=== PATIENT | female | born 1970 | race Caucasian/White ===

== ENCOUNTER 2020-09-07 10:33 | Outpatient (REF) | payer OTHER, SELFPAY | END 2020-09-07 10:34 | disposition home or self-care (01) | LOC: HO.WFDLDS 10:33 | PROVIDERS: Visit Provider Internal Medicine | DX: Z20.828 Contact with and (suspected) exposure to other viral communicable diseases (principal) | CPT/HCPCS: C9803; U0003 ==

== ENCOUNTER 2021-01-10 07:18 | Outpatient (REF) | payer OTHER, SELFPAY ==
--- NOTE | ~2021-01-10 | MM_ITS ---
EXAMINATION: MM SCREENING DIGITAL BREAST TOMOSYNTHESIS, BILATERAL CLINICAL INFORMATION: Screening. Asymptomatic. The lifetime risk of breast cancer based on the Tyrer-Cuzick Model is 7.2%. COMPARISON: Mammography: 01/05/2020 and studies dating back to 11/26/2012. TECHNIQUE: Digital breast tomosynthesis is performed in both the craniocaudal and mediolateral oblique views along with computer-aided detection (CAD). Synthesized 2D images are generated from the tomosynthesis. FINDINGS: There are scattered areas of fibroglandular density (ACR BI-RADS breast composition Category b). There is a stable parenchymal pattern of the left breast. No new abnormal dominant mass or suspicious grouping of microcalcifications identified. Within the central aspect of the right breast, there is a 9 x 7 mm circumscribed density, approximately 8 cm from the nipple, with the appearance of a possible skin lesion at either 12 o'clock or 6 o'clock in position; however, on mediolateral oblique study, I do not identify a skin lesion. This appears to have been present to some degree on the previous study. There are 2 densities about the superior aspect of the right breast, one approximately 6 cm from nipple and the other approximately 8 cm from the nipple for which spot compression views are recommended. MM/MM tomosynthesis screening BI IMPRESSION: Right breast densities for further evaluation with spot compression view. If lesions are persistent, then ultrasound would be warranted. ASSESSMENT: BI-RADS 0: Incomplete - Need Additional Imaging Evaluation RECOMMENDATION: 1. Additional views of the right breast. 2. Targeted ultrasound if warranted after review of the additional views. 3. Radiology department staff will contact the patient for additional imaging.
== END 2021-01-10 07:19 | disposition home or self-care (01) ==
LOC: HO.MAMMO 07:18
PROVIDERS: PCP Family Medicine; Visit Provider Family Medicine
DX: Z12.31 Encounter for screening mammogram for malignant neoplasm of breast (principal)
CPT/HCPCS: 77063; 77067

== ENCOUNTER 2021-01-19 10:38 | Outpatient (REF) | payer OTHER, SELFPAY ==
--- NOTE | ~2021-01-19 | MM_ITS ---
EXAMINATION: MM DIAGNOSTIC DIGITAL BREAST TOMOSYNTHESIS, RIGHT CLINICAL INFORMATION: Recall from screening for scattered asymmetric densities right breast central and outer aspect. TC score 7%. No known family history breast cancer. COMPARISON: Mammography: 01/10/2021, 01/05/2020, 12/31/2014, 11/26/2012 TECHNIQUE: Digital breast tomosynthesis is performed. 2D images are generated from the tomosynthesis. The following views are obtained: Spot MLO, standard ML, rolled CC x2. FINDINGS: There are scattered areas of fibroglandular density (ACR BI-RADS breast composition Category b). Additional views show no mass or developing density or architectural abnormality. Results are discussed with the patient at time of visit. MM/MM tomosynthesis added views R IMPRESSION: No significant changes from prior studies. ASSESSMENT: BI-RADS 1: Negative RECOMMENDATION: Routine annual mammography screening. This patient's information was entered into a reminder system with a target due date for their next mammogram.
== END 2021-01-19 10:39 | disposition home or self-care (01) ==
LOC: HO.MAMMO 10:38
PROVIDERS: Visit Provider Internal Medicine
DX: R92.2 Inconclusive mammogram (principal)
CPT/HCPCS: 77061; 77065

== ENCOUNTER → 2021-03-16 10:05 | Outpatient (BNVA) | payer OTHER, SELFPAY | PROVIDERS: Visit Provider Advanced Practice Midwife ==

== ENCOUNTER 2021-05-09 10:12 | Outpatient (REF) | payer OTHER, SELFPAY ==
[2021-05-09 13:23] LABS: MANUAL DIFF FLAG NO
[2021-05-09 13:28] LABS: Basophils Percent Auto 0.5 % (0-2); Eosinophils Absolute Auto 0.1 X10*3/uL (0.0-0.4); Eosinophils Percent Auto 1.1 % (0-4); Hematocrit 41.3 % (37-47); Hemoglobin 13.6 g/dl (12.0-16.0); Imm Gran Abs Auto 0.04 X10*3/uL (0.00-0.03); Imm Gran Pct Auto 0.5 % (0.0-0.4); Lymphocytes Absolute Auto 1.9 X10*3/uL (1.2-4.9); Lymphocytes Percent Auto 24.1 % (20-40); Mean Corpuscular HGB Conc 32.9 g/dl (31.0-35.0); Mean Corpuscular Hemoglobin 31.6 pg (27.0-33.0); Mean Corpuscular Volume 95.8 fL (80-98); Mean Platelet Volume 10.1 fL (9.4-12.3); Monocytes Absolute Auto 0.5 X10*3/uL (0.1-1.2); Monocytes Percent Auto 6.3 % (2-11); Neutrophils Absolute Auto 5.4 X10*3/uL (2.0-8.3); Neutrophils Percent Auto 67.5 % (45-73); Platelet Count 294 X10*3/uL (160-400); Red Blood Count 4.31 X10*6/uL (4.20-5.50); Red Cell Distribution Width 12.6 % (11.0-16.0)
[2021-05-09 13:57] LABS: Alanine Aminotransferase 13 U/L (0-31); Albumin Level 4.2 g/dL (3.5-5.0); Alkaline Phosphatase 97 U/L (39-117); Anion Gap 14 (12-20); Aspartate Amino Transferase 18 U/L (5-31); Bilirubin Total 0.7 mg/dL (0.0-1.0); Blood Urea Nitrogen 9 mg/dL (9-16); Calcium 9.1 mg/dL (8.4-10.2); Chloride 107 mmol/L (96-108); Cholesterol 166 mg/dL; Estimated Glomerular Filt Rate > 60; Glucose Fasting 142 mg/dL (60-99); HDL Cholesterol 45 mg/dL; LDL Cholesterol Calculated 96 mg/dl; Potassium 4.7 mmol/L (3.3-5.1); Sodium 140 mmol/L (135-145); Triglycerides 128 mg/dL
[2021-05-09 14:02] LABS: Carbon Dioxide 24 mmol/L (22-29)
[2021-05-09 14:18] LABS: TSH reflex Free T4 0.64 uIU/mL (0.32-4.0)
[2021-05-09 14:21] LABS: Creatinine Urine 175.99 mg/dL; Microalbum/Creatinine Ratio Ur 7.9 ug/mg cr
== END 2021-05-09 10:13 | disposition home or self-care (01) ==
LOC: HO.WFDLDS 10:12
PROVIDERS: Visit Provider Family Medicine
DX: Z00.00 Encounter for general adult medical examination without abnormal findings (principal); E11.9 Type 2 diabetes mellitus without complications; I10 Essential (primary) hypertension
CPT/HCPCS: 36415; 80053; 80061; 82043; 84443; 85025

== ENCOUNTER 2021-10-04 07:02 | Outpatient (REF) | payer OTHER, SELFPAY ==
[2021-10-04 11:08] LABS: MANUAL DIFF FLAG NO
[2021-10-04 11:26] LABS: Basophils Percent Auto 0.3 % (0-2); Eosinophils Absolute Auto 0.1 X10*3/uL (0.0-0.4); Hematocrit 38.5 % (37.0-47.0); Hemoglobin 12.6 g/dl (12.0-16.0); Imm Gran Abs Auto 0.02 X10*3/uL (0.00-0.03); Imm Gran Pct Auto 0.3 % (0.0-0.4); Lymphocytes Absolute Auto 1.7 X10*3/uL (1.2-4.9); Lymphocytes Percent Auto 25.3 % (20-40); Mean Corpuscular HGB Conc 32.7 g/dl (31.0-35.0); Mean Corpuscular Volume 94.6 fL (80.0-98.0); Mean Platelet Volume 10.7 fL (9.4-12.3); Monocytes Absolute Auto 0.5 X10*3/uL (0.1-1.2); Monocytes Percent Auto 6.9 % (2-11); Neutrophils Absolute Auto 4.5 x10*3/uL (2.0-8.3); Neutrophils Percent Auto 66.2 % (45-73); Platelet Count 301 X10*3/uL (160-400); Red Blood Count 4.07 X10*6/uL (4.20-5.50); White Blood Count 6.8 X10*3/uL (4.8-10.8)
[2021-10-04 11:47] LABS: Alanine Aminotransferase 21 U/L (0-31); Albumin Level 4.4 g/dL (3.5-5.0); Alkaline Phosphatase 72 U/L (39-117); Anion Gap 12 (12-20); Aspartate Amino Transferase 25 U/L (5-31); Bilirubin Total 0.3 mg/dL (0.0-1.0); Blood Urea Nitrogen 12 mg/dL (9-16); Calcium 9.3 mg/dL (8.4-10.2); Carbon Dioxide 24 mmol/L (22-29); Chloride 107 mmol/L (96-108); Estimated Glomerular Filt Rate > 60; Glucose Random 136 mg/dL (60-115); Potassium 4.8 mmol/L (3.3-5.1); Sodium 138 mmol/L (135-145); Total Protein 7.1 g/dL (6.5-8.0)
[2021-10-04 11:59] LABS: TSH reflex Free T4 0.59 uIU/mL (0.32-4.0)
== END 2021-10-04 07:03 | disposition home or self-care (01) ==
LOC: HO.WFDLDS 07:02
PROVIDERS: Visit Provider Family Medicine
DX: Z00.00 Encounter for general adult medical examination without abnormal findings (principal); R53.83 Other fatigue
CPT/HCPCS: 36415; 80053; 84443; 85025

== ENCOUNTER 2021-11-26 13:57 | Outpatient (REF) | payer OTHER, SELFPAY | END 2021-11-26 13:58 | disposition home or self-care (01) | LOC: HO.LNP 13:57 | PROVIDERS: Visit Provider Hospitalist | DX: Z20.822 Contact with and (suspected) exposure to COVID-19 (principal); R68.89 Other general symptoms and signs | CPT/HCPCS: U0003; U0005 ==

== ENCOUNTER 2022-01-14 07:24 | Outpatient (REF) | payer OTHER, SELFPAY ==
--- NOTE | ~2022-01-14 | MM_ITS ---
EXAMINATION: MM SCREENING DIGITAL BREAST TOMOSYNTHESIS, BILATERAL CLINICAL INFORMATION: Screening. Asymptomatic. The lifetime risk of breast cancer based on the Tyrer-Cuzick Model is 8%. COMPARISON: Mammography: 01/19/2021, 01/10/2021, 01/05/2020 TECHNIQUE: Digital breast tomosynthesis is performed in both the craniocaudal and mediolateral oblique views along with computer-aided detection (CAD). Synthesized 2D images are generated from the tomosynthesis. FINDINGS: There are scattered areas of fibroglandular density (ACR BI-RADS breast composition Category b). Parenchymal pattern is similar to prior studies. There is no developing density or architectural abnormality. There are no significant masses, abnormal calcifications, or other abnormalities. The axilla are unremarkable. MM/MM tomosynthesis screening BI IMPRESSION: No mammographic evidence of malignancy. ASSESSMENT: BI-RADS 1: Negative RECOMMENDATION: Routine annual mammography screening. This patient's information was entered into a reminder system with a target due date for their next mammogram.
== END 2022-01-14 07:25 | disposition home or self-care (01) ==
LOC: HO.MAMMO 07:24
PROVIDERS: PCP Family Medicine; Visit Provider Family Medicine
DX: Z12.31 Encounter for screening mammogram for malignant neoplasm of breast (principal)
CPT/HCPCS: 77063; 77067

== ENCOUNTER 2022-03-15 08:28 | Outpatient (REF) | payer OTHER, SELFPAY ==
[2022-03-16 09:46] LABS: BV Int Neg Control Negative (Negative); BV Int Pos Control Positive (Positive)
== END 2022-03-15 08:29 | disposition home or self-care (01) ==
LOC: HO.LAB 08:28
PROVIDERS: PCP Family Medicine; Visit Provider Advanced Practice Midwife
DX: Z01.411 Encounter for gynecological examination (general) (routine) with abnormal findings (principal); R10.2 Pelvic and perineal pain; R23.2 Flushing; N92.6 Irregular menstruation, unspecified
CPT/HCPCS: 87480; 87510; 87660

== ENCOUNTER 2022-10-23 11:19 | Outpatient (REF) | payer OTHER, SELFPAY ==
[2022-10-23 15:11] LABS: Glucose Fasting 59 mg/dL (60-99)
[2022-10-23 15:20] LABS: Alanine Aminotransferase 11 U/L (0-31); Albumin Level 4.3 g/dL (3.5-5.0); Alkaline Phosphatase 88 U/L (39-117); Anion Gap 10 (12-20); Aspartate Amino Transferase 18 U/L (5-31); Bilirubin Total 0.4 mg/dL (0.0-1.0); Blood Urea Nitrogen 10 mg/dL (9-16); Calcium 9.3 mg/dL (8.4-10.2); Carbon Dioxide 26 mmol/L (22-29); Chloride 108 mmol/L (96-108); Cholesterol 243 mg/dL; Estimated Glomerular Filt Rate > 60; HDL Cholesterol 52 mg/dL; LDL Cholesterol Calculated 170 mg/dl; Potassium 4.1 mmol/L (3.3-5.1); Sodium 140 mmol/L (135-145); TSH reflex Free T4 0.58 uIU/mL (0.32-4.0); Triglycerides 109 mg/dL
== END 2022-10-23 11:20 | disposition home or self-care (01) ==
LOC: HO.WFDLDS 11:19
PROVIDERS: Visit Provider Family Medicine
DX: Z00.00 Encounter for general adult medical examination without abnormal findings (principal)
CPT/HCPCS: 36415; 80053; 80061; 84443

== ENCOUNTER 2023-01-20 07:30 | Outpatient (REF) | payer OTHER, SELFPAY ==
--- NOTE | ~2023-01-20 | MM_ITS ---
EXAMINATION: MM SCREENING DIGITAL BREAST TOMOSYNTHESIS, BILATERAL CLINICAL INFORMATION: Screening. Asymptomatic. The lifetime risk of breast cancer based on the Tyrer-Cuzick Model is 7%. COMPARISON: Prior mammography exams, most recent 01/14/2022. TECHNIQUE: Digital breast tomosynthesis is performed in both the craniocaudal and mediolateral oblique views along with computer-aided detection (CAD). Synthesized 2D images are generated from the tomosynthesis. FINDINGS: There are scattered areas of fibroglandular density (ACR BI-RADS breast composition Category b). There are no significant masses, abnormal calcifications, or other abnormalities. Parenchymal pattern is similar to prior studies. There is no developing density or architectural abnormality. The axilla and skin contours are unremarkable. No significant changes. MM/MM tomosynthesis screening BI IMPRESSION: No mammographic evidence of malignancy. ASSESSMENT: BI-RADS 1: Negative RECOMMENDATION: Routine annual mammography screening. This patient's information was entered into a reminder system with a target due date for their next mammogram.
== END 2023-01-20 07:31 | disposition home or self-care (01) ==
LOC: HO.MAMMO 07:30
PROVIDERS: PCP Family Medicine; Visit Provider Family Medicine
DX: Z12.31 Encounter for screening mammogram for malignant neoplasm of breast (principal)
CPT/HCPCS: 77063; 77067

== ENCOUNTER → 2023-03-21 07:59 | Outpatient (BNVA) | payer OTHER, SELFPAY | PROVIDERS: PCP Family Medicine; Visit Provider Advanced Practice Midwife ==

== ENCOUNTER 2023-03-21 08:48 | Outpatient (REF) | payer OTHER, SELFPAY ==
[2023-03-21 10:56] LABS: Alanine Aminotransferase 13 U/L (0-31); Albumin Level 4.4 g/dL (3.5-5.0); Alkaline Phosphatase 90 U/L (39-117); Anion Gap 14 (12-20); Aspartate Amino Transferase 17 U/L (5-31); Bilirubin Total 0.6 mg/dL (0.0-1.0); Blood Urea Nitrogen 12 mg/dL (9-16); Calcium 9.5 mg/dL (8.4-10.2); Carbon Dioxide 25 mmol/L (22-29); Chloride 106 mmol/L (96-108); Cholesterol 192 mg/dL; Estimated Glomerular Filt Rate > 60; Glucose Fasting 142 mg/dL (60-99); HDL Cholesterol 49 mg/dL; LDL Cholesterol Calculated 116 mg/dl; Potassium 4.8 mmol/L (3.3-5.1); Sodium 140 mmol/L (135-145); Total Protein 7.1 g/dL (6.5-8.0); Triglycerides 135 mg/dL
== END 2023-03-21 08:49 | disposition home or self-care (01) ==
LOC: HO.LAB 08:48
PROVIDERS: PCP Family Medicine; Visit Provider Family Medicine
DX: Z00.00 Encounter for general adult medical examination without abnormal findings (principal)
CPT/HCPCS: 36415; 80053; 80061

== ENCOUNTER 2023-07-24 06:35 | Outpatient (REF) | payer OTHER, SELFPAY ==
[2023-07-24 08:25] LABS: Alanine Aminotransferase 15 U/L (0-31); Albumin Level 4.5 g/dL (3.5-5.0); Alkaline Phosphatase 94 U/L (39-117); Anion Gap 12 (12-20); Aspartate Amino Transferase 23 U/L (5-31); Bilirubin Total 0.6 mg/dL (0.0-1.0); Blood Urea Nitrogen 12 mg/dL (9-16); Calcium 9.6 mg/dL (8.4-10.2); Carbon Dioxide 26 mmol/L (22-29); Chloride 105 mmol/L (96-108); Cholesterol 207 mg/dL (<200); Estimated Glomerular Filt Rate > 60; Glucose Fasting 208 mg/dL (60-99); HDL Cholesterol 50 mg/dL (>40); LDL Cholesterol Calculated 125 mg/dL (<100); Potassium 4.2 mmol/L (3.3-5.1); Sodium 139 mmol/L (135-145); Total Protein 7.7 g/dL (6.5-8.0); Triglycerides 164 mg/dL (<150)
[2023-07-24 08:29] LABS: TSH reflex Free T4 1.21 uIU/mL (0.32-4.0)
== END 2023-07-24 06:36 | disposition home or self-care (01) ==
LOC: HO.LAB 06:35
PROVIDERS: PCP Family Medicine; Visit Provider Family Medicine
DX: Z00.00 Encounter for general adult medical examination without abnormal findings (principal); I10 Essential (primary) hypertension
CPT/HCPCS: 36415; 80053; 80061; 84443

== ENCOUNTER 2023-07-25 15:54 | Outpatient (AMB) | payer OTHER, SELFPAY ==
--- NOTE | 2023-07-25 15:56 | A.OFFPC_ITS ---
Vital Signs 07/25/23 15:57 Height 5 ft 7 in Weight 196 lb BMI 30.7 BP 128/76 Blood Pressure Location Lt brachial Position Sitting Pulse 87 Pulse Source Pulse Oximeter Pulse Oximetry (%) 97 Oxygen Delivery Method Room Air Intake Visit Reasons: CPE with f/u labs and health maint. Intake Note: Patient is here for a physical today. She also needs A1C Allergies ampicillin [AMPICILLIN] Allergy (Severe, Verified 07/25/23 16:02) RASH Medication List - Last Reconciled 07/25/23 by Salvador Bowie MD atorvastatin 80 mg PO DAILY biotin 10,000 mcg PO DAILY blood-glucose meter (Blood Glucose Monitoring kit) check blood sugar daily and prn bupropion HCl 200 mg PO BID 90 days cetirizine (Allergy Relief (cetirizine)) 10 mg PO DAILY PRN cyclobenzaprine 10 mg PO TID PRN 30 days dulaglutide (Trulicity) 0.75 mg (0.5 mL) subcut QWEEK 28 days fluoxetine 40 mg PO DAILY lancets (FreeStyle Lancets) As directed metformin 500 mg PO DAILY 90 days multivitamin (Daily Multi-Vitamin tablet) 1 tab PO DAILY omeprazole 40 mg PO DAILY Tobacco use date assessed: 07/25/23 Dental Screening Dental Screen Date: 07/25/23 Did you have a dental visit in the last 12 months?: Yes Did you have a dental problem in the last 6 months where you did not have access to dental care?: No Was dental information given to patient?: Patient has dentist HPI CPE with f/u labs and health maint. HPI Details 53 y/o female presents for a CPE with f/ u labs and health maintenance. Labs were drawn 07/24/23. Reviewed labs with pt. Triglycerides 164. TC 207. LDL 125. HDL 50. She is on artovastatin 80mg daily. Last A1c 03/24/23 6.6%. [facility] Medical History Irregular menses Hot flashes Anxiety Diabetes Depression Surgical History History of tubal ligation Family History Mother Coronary heart disease Father Coronary heart disease Diabetes History of heart attack Other Mental health disorder Social History Housing: House Alcohol intake: current Alcohol intake frequency: a few times a month Alcohol type: hard liquor Patient Tobacco Use Status: Never used Tobacco Cigarettes Per Day: 2 e-Cigarette/Vaping Use: Never Used Second Hand Smoke Exposure: No service: No Current occupational status: employed Current occupation: [employer] Current occupational exposures/hazards: No Gender identity: Female Cognitive needs: No Hearing needs: No Vision needs: Yes (glasses) Female Reproductive History Menstrual Age of Menarche: 13 Questionnaire Thrive Questionnaire Date Thrive assessed: 03/29/22 LETI-7 AMB Questionnaire LETI-7 Date LETI - 7 assessed: 10/23/22 Source: Developed by Drs. Jeff Goncalves, Anu Landin, Nathan Tejeda and colleagues, with an educational nguyen from [employer]. Review of Systems Const Denies chills, Denies fatigue, Denies fever(s), Denies headache(s) and Denies weakness Eyes Denies change in vision ENT Denies dizziness, Denies headache(s), Denies hearing loss, Denies nasal congestion, Denies sinus pain, Denies sinus pressure and Denies sore throat Card Denies chest pain, Denies lightheadedness, Denies dyspnea and Denies other (palpitations) Resp Denies cough, Denies dyspnea and Denies wheezing GI Denies abdominal pain, Denies melena, Denies hematochezia, Denies change in bowel habits, Denies dyspepsia and Denies nausea Denies hematuria and Denies dysuria Musc Denies abnormal gait, Denies myalgias, Denies arthralgias, Denies numbness and Denies tingling Skin/Breast Denies rash, Denies unusual bruising and Denies wounds Neuro Denies abnormal gait, Denies dizziness, Denies headache(s), Denies memory loss, Denies numbness, Denies Sensory deficit (Neuro), Denies tingling and Denies weakness Psych Denies anxiety, Denies depression and Denies memory loss Endo Denies cold intolerance, Denies fatigue, Denies heat intolerance, Denies polydipsia and Denies polyuria Te/Lymph Denies easy bleeding and Denies easy bruising Aller/Immun Denies wheezing Physical exam (Primary Care) BMI result Body Mass Index 30.7 Tobacco/Smoking Status: Tobacco use Status Tobacco use date assessed 07/25/23 07/25/23 16:03 Patient Tobacco Use Status Never used Tobacco 07/25/23 16:00 e-Cigarette/Vaping Use Never Used 07/25/23 16:00 Thrive Assessment: Date of Thrive Assessment Date Thrive assessed 03/29/22 07/25/23 16:00 Const General: no acute distress, well developed, alert and awake Nutritional Appearance: well nourished Orientation/consciousness: patient oriented x3 HENMT Head: Yes normocephalic and Yes atraumatic Ears: hearing grossly normal bilaterally and TM's normal bilaterally General nose exam: Normal external nose present and Normal nares present Mouth: Normal oral and palatal mucosa present and moist mucous membranes Teeth and gingiva: dentition normal Throat: Yes posterior oropharynx normal Eyes General: appearance normal, both eyes and all related structures Pupils: Equal, round and reactive pupils present and Pupil accommodation reflex normal EOM: EOMs intact bilaterally Neck Neck: Yes normal visual inspection, Yes no lymphadenopathy and Yes trachea midline Thyroid: Thyroid normal Carotids: no bruits Lymphatic: no lymphadenopathy noted Chest Chest palpation & inspection: normal inspection of the chest Resp Effort & Inspection: normal respiratory effort Auscultation: clear to auscultation bilaterally Cardio Rate: regular rate Rhythm: regular rhythm Heart sounds: S1 normal heart sound present, S2 normal heart sound present, no gallops, no murmurs and no rubs Bruits: no abdominal aortic bruits and no carotid bruits GI Palpation (GI): No Abdominal aortic bruit present, Soft to palpation, nontender, No hepatosplenomegaly present and No Rebound tenderness present Auscultation: normal bowel sounds General: Yes no CVA tenderness Back/Spine/Pelvis Back: no CVA tenderness Cervical Spine: cervical ROM normal and No Cervical spine tenderness Thoracic/Lumbar Spine: thoraco-lumbar ROM normal, No pain with thoraco-lumbar ROM, No thoracic spinal tenderness and No lumbar spinal tenderness Skin Lesions: no lesions Rashes: no rashes Trauma: no lacerations or abrasions Wounds: no wounds Nails: normal Neuro General: patient oriented x3 Cranial nerves: Yes Equal, round and reactive pupils present Cognition (Neuro): normal cognition Gait exam (Neuro): Normal gait present Motor exam (neuro): 5/5 motor strength present throughout Sensory Exam: No Sensory deficit (Neuro) Deep tendon reflexes (DTR's): Right patellar reflex intensity grade: 2+ and Left patellar reflex intensity grade: 2+ Extrem General: Yes normal to inspection and No edema Psych Appearance: grossly normal Affect: normal affect Attitude: cooperative Thought process: Normal thought process present Results AMB Hemoglobin A1c AMB Hemoglobin A1c 7.4 % Last Edit by Lorin Bearden CMA on 07/25/23 16:26 Assessment and Plan Assessment & Plan (1) Annual visit for general adult medical examination without abnormal findings: Code(s): Z00.00 - Encounter for general adult medical examination without abnormal findings Plan: 53-year-old female presents for complete physical exam Encouraged healthy diet with active lifestyle and plenty of exercise (2) Hyperlipidemia: Code(s): E78.5 - Hyperlipidemia, unspecified Plan: LDL cholesterol still above goal and in fact increased. Goal is less than 100 for patient with diabetes Switching atorvastatin 80 mg to Crestor 40 mg daily Encouraged exercise (3) Diabetes: Code(s): E11.9 - Type 2 diabetes mellitus without complications Plan: A1c had been 6.6%; at goal but has risen to 7.4%. Goal is less than 7.0% Increasing Trulicity from 0.75 mg weekly to 1.5 mg weekly Encouraged exercise and diabetic diet (4) GERD (gastroesophageal reflux disease): Code(s): K21.9 - Gastro-esophageal reflux disease without esophagitis Plan: Continue taking omeprazole as prescribed Avoid eating too late or eating large meals. (5) Breast cancer screening by mammogram: Code(s): Z12.31 - Encounter for screening mammogram for malignant neoplasm of breast Plan: Most recent mammogram was negative for any malignancies. Recommended annual screening. She is up-to-date (6) Screening for cervical cancer: Code(s): Z12.4 - Encounter for screening for malignant neoplasm of cervix Plan: Has an upcoming appointment with her artist suspect at [facility] Follow-up with artist suspect (7) Screening for colon cancer: Code(s): Z12.11 - Encounter for screening for malignant neoplasm of colon Plan: Followed by Dr. Chavez. She says she had a colonoscopy 2 and half to 3 years ago I do not have access to that report today so I will request it. Orders: Orders AMB Hemoglobin A1c Today Z13.9 - Encounter for screening, unspecified Medications: New rosuvastatin 40 mg PO DAILY 90 tabs 2RF 90 days Changed From dulaglutide (Trulicity) 0.75 mg (0.5 mL) subcut QWEEK 28 days 2 mL 2RF To dulaglutide 1.5 mg (0.5 mL) subcut QWEEK 2 mL 2RF 28 days Discontinued atorvastatin Discontinued Reason: Doctor's Order 80 mg PO DAILY 90 tabs 1RF Coding Level of Care Code Est Pt Level 3 (54146) Est Pt Prev Care 40-64y(99077) Diagnoses Annual visit for general adult medical examination without abnormal findings Z00.00 Hyperlipidemia E78.5 Diabetes E11.9 GERD (gastroesophageal reflux disease) K21.9 Breast cancer screening by mammogram Z12.31 Screening for cervical cancer Z12.4 Screening for colon cancer Z12.11
[2023-07-25 15:57] VITALS: BP 128/76; PULSE 87; O2SAT 97; BMI 30.7
== END 2023-07-25 16:44 | disposition home or self-care (01) ==
PROVIDERS: PCP Family Medicine; Visit Provider Family Medicine
DX: Z00.00 Encounter for general adult medical examination without abnormal findings (principal); E11.9 Type 2 diabetes mellitus without complications; K21.9 Gastro-esophageal reflux disease without esophagitis; E78.5 Hyperlipidemia, unspecified
CPT/HCPCS: 83036; 99396

== ENCOUNTER 2023-10-24 07:20 | Outpatient (REF) | payer OTHER, SELFPAY ==
[2023-10-24 09:07] LABS: Appearance Urine Clear; Color Urine Yellow; Glucose Urine UA Negative (Negative); Leukocyte Esterase Urine Negative (Negative); Nitrite Urine Negative (Negative); PH 6.5 (5.0-9.0); Specific Gravity - Urine 1.025 (1.005-1.025); Urine Blood Negative (Negative); Urine Ketones Negative (Negative); Urine Protein Negative (Neg-Trace)
[2023-10-24 09:33] LABS: Alanine Aminotransferase 12 U/L (0-31); Albumin Level 4.3 g/dL (3.5-5.0); Alkaline Phosphatase 98 U/L (39-117); Anion Gap 13 (12-20); Aspartate Amino Transferase 19 U/L (5-31); Bilirubin Total 0.5 mg/dL (0.0-1.0); Blood Urea Nitrogen 10 mg/dL (9-16); Calcium 9.3 mg/dL (8.4-10.2); Carbon Dioxide 25 mmol/L (22-29); Chloride 107 mmol/L (96-108); Cholesterol 175 mg/dL (<200); Estimated Glomerular Filt Rate > 60; Glucose Fasting 144 mg/dL (60-99); HDL Cholesterol 54 mg/dL (>40); LDL Cholesterol Calculated 105 mg/dL (<100); Potassium 4.1 mmol/L (3.3-5.1); Sodium 141 mmol/L (135-145); Total Protein 7.4 g/dL (6.5-8.0); Triglycerides 84 mg/dL (<150)
[2023-10-24 09:34] LABS: Creatinine Urine 139.82 mg/dL; Microalbum/Creatinine Ratio Ur 8.5 ug/mg cr (<30)
== END 2023-10-24 07:21 | disposition home or self-care (01) ==
LOC: HO.LAB 07:20
PROVIDERS: PCP Family Medicine; Visit Provider Family Medicine
DX: Z00.00 Encounter for general adult medical examination without abnormal findings (principal); E11.9 Type 2 diabetes mellitus without complications; I10 Essential (primary) hypertension; E78.5 Hyperlipidemia, unspecified
CPT/HCPCS: 36415; 80053; 80061; 81003; 82043; 82570

== ENCOUNTER 2023-12-04 15:43 | Outpatient (AMB) | payer OTHER, SELFPAY ==
[2023-12-04 15:55] VITALS: BP 116/74; PULSE 96; O2SAT 98; BMI 29.4
--- NOTE | 2023-12-04 15:55 | MHC.PC.OV ---
Vital Signs 12/04/23 15:55 Height 5 ft 7 in Weight 188 lb BMI 29.4 BP 116/74 Blood Pressure Location Lt brachial Position Sitting Pulse 96 Pulse Source Pulse Oximeter Pulse Oximetry (%) 98 Oxygen Delivery Method Room Air Intake Visit Reasons: Follow-up diabetes and hyperlipidemia Intake Note: Patient is following up on diabetes and hyperlipidemia. Allergies ampicillin [AMPICILLIN] Allergy (Severe, Verified 12/04/23 15:56) RASH Tobacco use date assessed: 12/04/23 Dental Screening Dental Screen Date: 12/04/23 Did you have a dental visit in the last 12 months?: Yes Did you have a dental problem in the last 6 months where you did not have access to dental care?: No Was dental information given to patient?: Patient has dentist HPI Follow-up diabetes and hyperlipidemia HPI Details 53 y/o female presents to f/u diabetes and hyperlipidemia. Had increased Trulicity from 0.75 mg weekly to 1.5mg weekly and continued metformin as prescribed. Last A1c 07/25/23 7.4%. A1c today 12/04/23 is 6.5%. Had switched artovastatin 80mg to rosuvastatin 40mg daily. [facility] Medical History Irregular menses Hot flashes Anxiety Diabetes Depression Surgical History History of tubal ligation Family History Mother Coronary heart disease Father Coronary heart disease Diabetes History of heart attack Other Mental health disorder Social History Housing: House Alcohol intake: current Alcohol intake frequency: a few times a month Alcohol type: hard liquor Patient Tobacco Use Status: Never used Tobacco Cigarettes Per Day: 2 e-Cigarette/Vaping Use: Never Used Second Hand Smoke Exposure: No service: No Current occupational status: employed Current occupation: [employer] Current occupational exposures/hazards: No Gender identity: Female Cognitive needs: No Hearing needs: No Vision needs: Yes (glasses) Female Reproductive History Menstrual Age of Menarche: 13 Questionnaire PHQ-9 Over the last 2 weeks, how often have you been bothered by any of the following problems? 1. Little interest or pleasure in doing things: nearly every day 2. Feeling down, depressed, or hopeless: nearly every day 3. Trouble falling or staying asleep, or sleeping too much: nearly every day 4. Feeling tired or having little energy: nearly every day 5. Poor appetite or overeating: not at all 6. Feeling bad about yourself - or that you are a failure or have let yourself or your family down: not at all 7. Trouble concentrating on things, such as reading the newspaper or watching television: not at all 8. Moving or speaking so slowly that other people could have noticed. Or the opposite - being so fidgety or restless that you have been moving around a lot more than usual: not at all 9. Thoughts that you would be better off or of hurting yourself in some way: not at all Total score: 12 Depression Screening Interpretation: Positive Depression Screening Done: Yes Source: Developed by Drs. Jeff Goncalves, Anu Landin, Nathan Tejeda and colleagues, with an educational nguyen from [employer]. Thrive Questionnaire I am a: Patient AUDIT C Alcohol Use Questionnaire (AUDIT-C) 1. How often do you have a drink containing alcohol?: Monthly or less 2. How many drinks containing alcohol do you have on a typical day when you are drinking?: 1 or 2 3. How often do you have six or more drinks on one occasion?: Never Total Score: 1 LETI-7 AMB Questionnaire LETI-7 Date LETI - 7 assessed: 12/04/23 Feeling nervous, anxious, or on edge: 3 = Nearly every day Not being able to stop or control worryin = Nearly every day Worrying too much about different things: 3 = Nearly every day Trouble relaxin = Nearly every day Being so restless that it is hard to sit still: 0 = Not at all Becoming easily annoyed or irritable: 3 = Nearly every day Feeling afraid as if something awful might happen: 0 = Not at all Total LETI-7 score (0-4 normal; 5-9 mild; 10-14 moderate; 15-21 severe): 15 Source: Developed by Drs. Jeff Goncalves, Anu Landin, Nathan Tejeda and colleagues, with an educational nguyen from [employer]. Review of Systems Const Denies chills, Denies fatigue, Denies fever(s), Denies headache(s) and Denies weakness ENT Denies dizziness and Denies headache(s) Card Denies chest pain, Denies lightheadedness, Denies dyspnea and Denies other (Palpitations) Resp Denies cough, Denies dyspnea, Denies wheezing and Denies other ( shortness of breath) Musc Denies numbness and Denies tingling Neuro Denies dizziness, Denies headache(s), Denies numbness, Denies tingling, Denies paresthesias and Denies weakness Psych Denies anxiety and Denies depression Endo Denies fatigue Aller/Immun Denies wheezing Physical exam (Primary Care) Vital Signs: Last Vital Signs Pulse 96 12/04/23 15:55 BP 116/74 12/04/23 15:55 Pulse Ox 98 12/04/23 15:55 Oxygen Delivery Method Room Air 12/04/23 15:55 BMI result Body Mass Index 29.4 Tobacco/Smoking Status: Tobacco use Status Tobacco use date assessed 12/04/23 12/04/23 15:58 Patient Tobacco Use Status Never used Tobacco 12/04/23 15:56 e-Cigarette/Vaping Use Never Used 12/04/23 15:56 PHQ-9: PHQ-9 Score PHQ-9: Total score 12 12/04/23 16:08 Depression Screening Interpretation: Positive Thrive Assessment: Date of Thrive Assessment Date Thrive assessed 12/04/23 16:08 Const General: no acute distress and well developed Nutritional Appearance: well nourished Orientation/consciousness: patient oriented x3 [facility] Head: Yes normocephalic and Yes atraumatic Eyes General: appearance normal, both eyes and all related structures Pupils: Equal, round and reactive pupils present EOM: EOMs intact bilaterally Resp Effort & Inspection: normal respiratory effort Auscultation: clear to auscultation bilaterally Cardio Rate: regular rate Rhythm: regular rhythm Heart sounds: S1 normal heart sound present, S2 normal heart sound present, no gallops, no murmurs and no rubs Neuro General: patient oriented x3 and gait normal Cranial nerves: Yes Equal, round and reactive pupils present Psych Affect: normal affect Assessment and Plan Assessment & Plan (1) Diabetes: Code(s): E11.9 - Type 2 diabetes mellitus without complications Plan: A1c?now?6.5%.??Much?improved?and?at?goal?of?less?than?7.0% Continue?current?medication?regimen Continue?diabetic?diet?and?exercise.??Continue?weight?loss. Up-to-date?with?diabetic?eye?exam?from?July?2022 She?has?been?having?some?difficulty?getting?Trulicity.??Will?try?sending?as?3?month?supply (2) Hyperlipidemia: Code(s): E78.5 - Hyperlipidemia, unspecified Plan: LDL?cholesterol?nearly?at?goal?now?of?less?than?100 She?did?not?tolerate?rosuvastatin?and?went?back?to?atorvastatin?80?mg?daily?and?has?been?working?at?lifestyle?changes Continue?lifestyle?changes?and?atorvastatin?80?mg?daily (3) Motion sickness: Code(s): T75.3XXA - Motion sickness, initial encounter Plan: Patient?requests?scopolamine?patches.??Will?send?today. Medications: New scopolamine base 1 patch transdermal Q3D PRN 10 ea 0RF nausea and vomiting 30 days Changed From dulaglutide 1.5 mg (0.5 mL) subcut QWEEK 28 days 2 mL 2RF To dulaglutide 1.5 mg (0.5 mL) subcut QWEEK 84 days 6 mL 2RF Coding Level of Care Code Est Pt Level 4 (62345) Diagnoses Diabetes E11.9 Hyperlipidemia E78.5 Motion sickness T75.3XXA
== END 2023-12-04 16:23 | disposition home or self-care (01) ==
PROVIDERS: PCP Family Medicine; Visit Provider Family Medicine
DX: E11.69 Type 2 diabetes mellitus with other specified complication (principal); E78.5 Hyperlipidemia, unspecified; T75.3XXA Motion sickness, initial encounter
CPT/HCPCS: 83036; 99214

== ENCOUNTER 2024-01-26 07:29 | Outpatient (REF) | payer OTHER, SELFPAY ==
--- NOTE | ~2024-01-26 | MM_ITS ---
EXAMINATION: MM SCREENING DIGITAL BREAST TOMOSYNTHESIS, BILATERAL CLINICAL INFORMATION: Screening. Asymptomatic. COMPARISON: Mammography: 01/20/2023, 01/14/2022, 01/19/2021, 01/10/2021, 01/05/2020 TECHNIQUE: Digital breast tomosynthesis is performed in both the craniocaudal and mediolateral oblique views along with computer-aided detection (CAD). Synthesized 2D images are generated from the tomosynthesis. FINDINGS: There are scattered areas of fibroglandular density (ACR BI-RADS breast composition Category b). There are no suspicious masses, suspicious grouped calcifications, or areas of architectural distortion in either breast. The parenchymal pattern is stable from prior exams. There are no skin or axillary abnormalities. MM/MM tomosynthesis screening BI IMPRESSION: No mammographic evidence of malignancy. No significant changes. ASSESSMENT: BI-RADS BI-RADS 1 - Negative RECOMMENDATION: Routine annual mammography screening. 1 year F/U This examination should not preclude the clinical evaluation of a suspicious palpable abnormality. This patient's information was entered into a reminder system with a target due date for their next mammogram.
== END 2024-01-26 07:30 | disposition home or self-care (01) ==
LOC: HO.MAMMO 07:29
PROVIDERS: PCP Family Medicine; Visit Provider Family Medicine
DX: Z12.31 Encounter for screening mammogram for malignant neoplasm of breast (principal)
CPT/HCPCS: 77063; 77067

== ENCOUNTER → 2024-01-26 07:30 | Outpatient (BNV) | payer OTHER, SELFPAY | PROVIDERS: PCP Family Medicine; Visit Provider Radiology Diagnostic Radiology | DX: Z12.31 Encounter for screening mammogram for malignant neoplasm of breast (principal) | CPT/HCPCS: 77063; 77067 ==

== ENCOUNTER 2024-03-05 16:14 | Outpatient (AMB) | payer OTHER, SELFPAY ==
[2024-03-05 16:36] VITALS: BP 141/85; PULSE 81; O2SAT 98
--- NOTE | 2024-03-05 16:36 | A.OFFPC_ITS ---
Vital Signs 03/05/24 16:36 Height 5 ft 7 in BP 141/85 H Blood Pressure Location Lt brachial Position Sitting Pulse 81 Pulse Source Pulse Oximeter Pulse Oximetry (%) 98 Oxygen Delivery Method Room Air Intake Visit Reasons: Follow-up diabetes and hyperlipidemia Intake Note: Patient is here upset and did not medical device her diabetic meds for about 2-3 months now, her pharmacy had tried to ask for alternative meds, but no reply to the patient athat we received the request. Allergies ampicillin [AMPICILLIN] Allergy (Severe, Verified 03/05/24 16:41) RASH Tobacco use date assessed: 03/05/24 Dental Screening Dental Screen Date: 12/04/23 HPI Follow-up diabetes and hyperlipidemia HPI Details 54 y/o female presents to f/u diabetes, HLD. Last A1c 12/04/23 6.5%. She is on ozempic 1mg weekly and metformin as prescribed. Pt reports she has not received her diabetes meds for 2-3 months. A1c today 03/05/24 is 9.0%. Had switched artovastatin 80mg to rosuvastatin 40mg daily. No recent lipid panel to review. [facility] Medical History Irregular menses Hot flashes Anxiety Diabetes Depression Surgical History History of tubal ligation Family History Mother Coronary heart disease Father Coronary heart disease Diabetes History of heart attack Other Mental health disorder Social History Housing: House Alcohol intake: current Alcohol intake frequency: a few times a month Alcohol type: hard liquor Patient Tobacco Use Status: Never used Tobacco Cigarettes Per Day: 2 e-Cigarette/Vaping Use: Never Used Second Hand Smoke Exposure: No service: No Current occupational status: employed Current occupation: [employer] Current occupational exposures/hazards: No Gender identity: Female Cognitive needs: No Hearing needs: No Vision needs: Yes (glasses) Female Reproductive History Menstrual Age of Menarche: 13 Questionnaire LETI-7 AMB Questionnaire LETI-7 Date LETI - 7 assessed: 12/04/23 Source: Developed by Drs. Jeff Goncalves, Anu Landin, Nathan Tejeda and colleagues, with an educational nguyen from [employer]. Review of Systems Const Denies chills, Denies fatigue, Denies fever(s), Denies headache(s) and Denies weakness ENT Denies dizziness and Denies headache(s) Card Denies dyspnea Resp Denies cough, Denies dyspnea, Denies wheezing and Denies other (shortness of breath) Musc Denies numbness and Denies tingling Neuro Denies dizziness, Denies headache(s), Denies numbness, Denies tingling and Denies weakness Psych Denies anxiety and Denies depression Endo Denies fatigue Aller/Immun Denies wheezing Physical exam (Primary Care) Tobacco/Smoking Status: Tobacco use Status Tobacco use date assessed 12/04/23 03/05/24 16:37 Patient Tobacco Use Status Never used Tobacco 03/05/24 16:37 e-Cigarette/Vaping Use Never Used 03/05/24 16:37 Const General: well developed; No acute distress Nutritional Appearance: well nourished Orientation/consciousness: patient oriented x3 HENMT Head: Yes normocephalic and Yes atraumatic Eyes General: appearance normal, both eyes and all related structures Pupils: Equal, round and reactive pupils present EOM: EOMs intact bilaterally Resp Effort & Inspection: normal respiratory effort Auscultation: clear to auscultation bilaterally Cardio Rate: regular rate Rhythm: regular rhythm Heart sounds: S1 normal heart sound present, S2 normal heart sound present, no gallops, no murmurs and no rubs Neuro General: patient oriented x3 and gait normal Cranial nerves: Yes Equal, round and reactive pupils present Psych Affect: normal affect Results AMB Hemoglobin A1c AMB Hemoglobin A1c 9.0 % Last Edit by Lorin Bearden CMA on 03/05/24 17:00 Assessment and Plan Assessment & Plan (1) Diabetes: Code(s): E11.9 - Type 2 diabetes mellitus without complications Plan: A1c?9.0%. She?has?been?unable?to?get?Trulicity?or?Ozempic?due?ultimately?to?insurance?decl ining?these. She?will?continue?metformin She?will?start?Lantus?10?units?daily?and?check?her?blood?sugars. Will?follow-up?in?1?month Orders: Orders AMB Hemoglobin A1c Today Z13.9 - Encounter for screening, unspecified Medications: New insulin glargine (Lantus Solostar U-100 Insulin) 10 units (0.1 mL) subcut QPM 30 days 3 mL 3RF pen needle, diabetic (BD Ultra-Fine Micro Pen Needle) To treat blood sugar, daily as directed, 90 days 100 ea 3RF E11.9 - Type 2 diabetes mellitus without complications Discontinued semaglutide (Ozempic) Discontinued Reason: Doctor's Order 1 mg (0.75 mL) subcut QWEEK 28 days 3 mL 3RF Coding Level of Care Code Est Pt Level 3 (42541) Diagnoses Diabetes E11.9
== END 2024-03-05 17:14 | disposition home or self-care (01) ==
PROVIDERS: PCP Family Medicine; Visit Provider Family Medicine
DX: E11.9 Type 2 diabetes mellitus without complications (principal)
CPT/HCPCS: 83036; 99213

== ENCOUNTER 2024-04-02 10:21 | Outpatient (AMB) | payer OTHER, SELFPAY ==
--- NOTE | 2024-04-02 11:02 | A.OFFPC_ITS ---
Vital Signs 04/02/24 11:05 Height 5 ft 7 in Weight 192 lb BMI 30.1 BP 120/82 Blood Pressure Location Lt brachial Position Sitting Pulse 77 Pulse Source Pulse Oximeter Pulse Oximetry (%) 97 Oxygen Delivery Method Room Air Intake Visit Reasons: f/u diabetes Intake Note: Patient is here to follow up on her diabetes. Allergies ampicillin [AMPICILLIN] Allergy (Severe, Verified 04/02/24 11:08) RASH Tobacco use date assessed: 04/02/24 Dental Screening Dental Screen Date: 04/02/24 Did you have a dental visit in the last 12 months?: Yes Did you have a dental problem in the last 6 months where you did not have access to dental care?: No Was dental information given to patient?: Patient has dentist HPI f/u diabetes HPI Details 54 y/o female presents to f/u diabetes. A1c last office visit 03/05/24 9.0%. Had started her on Lantus 10 units q.p.m and continued her metformin. Fasting blood sugar today is 149. Pt reports life stressors and does not feel like her current medication regimen for her mood has been helping. She is on bupropion 200mg, fluoxetine 40 mg daily. [facility] Medical History Irregular menses Hot flashes Anxiety Diabetes Depression Surgical History History of tubal ligation Family History Mother Coronary heart disease Father Coronary heart disease Diabetes History of heart attack Other Mental health disorder Social History Housing: House Alcohol intake: current Alcohol intake frequency: a few times a month Alcohol type: hard liquor Patient Tobacco Use Status: Never used Tobacco Cigarettes Per Day: 2 e-Cigarette/Vaping Use: Never Used Second Hand Smoke Exposure: No service: No Current occupational status: employed Current occupation: [employer] Current occupational exposures/hazards: No Gender identity: Female Cognitive needs: No Hearing needs: No Vision needs: Yes (glasses) Female Reproductive History Menstrual Age of Menarche: 13 Questionnaire LETI-7 AMB Questionnaire LETI-7 Date LETI - 7 assessed: 12/04/23 Source: Developed by Drs. Jeff Goncalves, Anu Landin, Nathan sher nd colleagues, with an educational nguyen from [employer]. Review of Systems Const Denies chills, Denies fatigue, Denies fever(s), Denies headache(s) and Denies weakness ENT Denies dizziness and Denies headache(s) Card Denies dyspnea Resp Denies cough, Denies dyspnea, Denies wheezing and Denies other (shortness of breath) Musc Denies numbness and Denies tingling Neuro Denies dizziness, Denies headache(s), Denies numbness, Denies tingling and Denies weakness Psych Reports anxiety and Reports depression Endo Denies fatigue Aller/Immun Denies wheezing Physical exam (Primary Care) Vital Signs: Last Vital Signs Pulse 77 04/02/24 11:05 BP 120/82 04/02/24 11:05 Pulse Ox 97 04/02/24 11:05 Oxygen Delivery Method Room Air 04/02/24 11:05 BMI result Body Mass Index 30.1 Tobacco/Smoking Status: Tobacco use Status Tobacco use date assessed 04/02/24 04/02/24 11:10 Patient Tobacco Use Status Never used Tobacco 04/02/24 11:04 e-Cigarette/Vaping Use Never Used 04/02/24 11:04 Const General: well developed; No acute distress Nutritional Appearance: well nourished Orientation/consciousness: patient oriented x3 HENMT Head: Yes normocephalic and Yes atraumatic Eyes General: appearance normal, both eyes and all related structures Pupils: Equal, round and reactive pupils present EOM: EOMs intact bilaterally Resp Effort & Inspection: normal respiratory effort Neuro General: patient oriented x3 and gait normal Cranial nerves: Yes Equal, round and reactive pupils present Psych Affect: normal affect Results AMB Random Glucose (hemocue) AMB Random Glucose (hemocue) 149 mg/dL Last Edit by Lorin Bearden CMA on 04/02/24 11:46 Results Reviewed Results Reviewed: Laboratory Last Values Random Glu (Clinic) 149 mg/dL 04/02/24 11:42 Assessment and Plan Assessment & Plan (1) Diabetes: Code(s): E11.9 - Type 2 diabetes mellitus without complications Plan: Recent?A1c?was?greater?than?9.0%. She?pal d?been?unable?to?get?Trulicity?or?Ozempic?so?I?switched?her?to?Lantus?and?contin ued?her?metformin. Patient?is?unhappy?with?taking?Lantus?as?she?has?due?injected?every?day?and?want s?to?get?back?to?using?Ozempic. Will?try?to?get?her?back?on?the?Ozempic?however?will?continue?Lantus?until?she?i s?able?to?obtain?Ozempic I?advised?she?increase?her?Lantus?to?14?units?daily?as?she?notes?that?her?mornin g?blood?sugars?are?more?often?above?150. Fasting?blood?sugar?in?the?office?today?149. She?will?continue?to?check?her?morning?blood?sugars?and?may?titrate?up?by?2?unit s?every?2?days?that?her?blood?sugar?is?greater?than?150s (2) Depression with anxiety: Code(s): F41.8 - Other specified anxiety disorders Plan: Worsened?anxiety?and?depression?with?acute?adjustment?due?to?loss?of?a?20?year?l sun?relationship She?is?unable?to?afford?a?therapist?as?she?owes?her?prior?therapist?money Will?ask?t he?nurse?navigator?to?contact?her?to?evaluate?for?any?services?or?programs?that? she?would?be?eligible?for for?financial?help. Will?also?give?her?a?short?course?of?clonazepam Continue?bupropion?and?fluoxetine. Orders: Orders AMB Random Glucose (hemocue) Today Z13.9 - Encounter for screening, unspecified Referrals Nurse Navigator Referral F41.9 - Anxiety disorder, unspecified Medications: New clonazepam 0.5 mg PO DAILY 30 days PRN 12 tabs 0RF anxiety Coding Level of Care Code Est Pt Level 3 (06621) Diagnoses Diabetes E11.9 Depression with anxiety F41.8
[2024-04-02 11:05] VITALS: BP 120/82; PULSE 77; O2SAT 97; BMI 30.1
== END 2024-04-02 11:54 | disposition home or self-care (01) ==
PROVIDERS: PCP Family Medicine; Visit Provider Family Medicine
DX: E11.9 Type 2 diabetes mellitus without complications (principal); F41.8 Other specified anxiety disorders
CPT/HCPCS: 82948; 99213

== ENCOUNTER 2024-05-03 15:16 | Outpatient (AMB) | payer OTHER, SELFPAY ==
[2024-05-03 15:20] VITALS: BP 114/70; PULSE 72; TEMP 37.2; O2SAT 99; BMI 29.9
--- NOTE | 2024-05-03 15:20 | MHC.PC.OV ---
Vital Signs 05/03/24 15:20 Height 5 ft 7 in Weight 191 lb BMI 29.9 BP 114/70 Blood Pressure Location Lt brachial Position Sitting Pulse 72 Pulse Source Pulse Oximeter Temp 99 F Temp Source Oral Pulse Oximetry (%) 99 Oxygen Delivery Method Room Air Intake Visit Reasons: follow up diabetes Intake Note: Patient is herefor follow up on diabetes today. Allergies ampicillin [AMPICILLIN] Allergy (Severe, Verified 04/02/24 11:08) RASH Medication List - Last Reconciled 05/03/24 by Salvador Bowie MD atorvastatin 80 mg PO DAILY 90 days biotin 10,000 mcg PO DAILY blood-glucose meter (Blood Glucose Monitoring kit) check blood sugar daily and prn bupropion HCl SR 200 mg PO BID 90 days cetirizine (Allergy Relief (cetirizine)) 10 mg PO DAILY PRN clonazepam 0.5 mg PO DAILY PRN 30 days cyclobenzaprine 10 mg PO TID PRN 30 days dulaglutide 1.5 mg (0.5 mL) subcut QWEEK 28 days fluoxetine 40 mg PO DAILY insulin glargine (Lantus Solostar U-100 Insulin) 10 units (0.1 mL) subcut QPM 30 days lancets (FreeStyle Lancets) As directed metformin 500 mg PO DAILY 90 days multivitamin (Daily Multi-Vitamin tablet) 1 tab PO DAILY omeprazole 40 mg PO DAILY pen needle, diabetic (BD Ultra-Fine Micro Pen Needle) To treat blood sugar, daily as directed, 90 days scopolamine base 1 patch transdermal Q3D PRN 30 days Tobacco use date assessed: 04/02/24 Dental Screening Dental Screen Date: 04/02/24 HPI follow up diabetes HPI Details 54 y/o female presents to f/u diabetes and worsened anxiety/depression with acute adjustment. Last A1c 03/05/24 9.0%. She had been unable to get Trulicity or Ozempic so had switched her to Lantus and continued her metformin. Pt was unhappy with Lantus however, so had gotten her back to Ozempic and recommended her to continue Lantus until she is able to obtain Ozempic. Had given her a short course of clonazepam for her depression/anxiety. Continued her buproprion and fluoxetine. A1c today 05/03/24 is She reports morning blood sugars in the 130s. HPI Comments History of Present Illness Details Documentation assistance for Salvador Bowie MD, was provided by Capo Wyatt,? [employer] on 05/03/2024 at 3:37? PM EST. I, Dr. Bowie, have read, observed, and verified documentation. [facility] Medical History Irregular menses Hot flashes Anxiety Diabetes Depression Surgical History History of tubal ligation Family History Mother Coronary heart disease Father Coronary heart disease Diabetes History of heart attack Other Mental health disorder Social History Housing: House Alcohol intake: current Alcohol intake frequency: a few times a month Alcohol type: hard liquor Patient Tobacco Use Status: Never used Tobacco Cigarettes Per Day: 2 e-Cigarette/Vaping Use: Never Used Second Hand Smoke Exposure: No service: No Current occupational status: employed Current occupation: [employer] Current occupational exposures/hazards: No Gender identity: Female Cognitive needs: No Hearing needs: No Vision needs: Yes (glasses) Female Reproductive History Menstrual Age of Menarche: 13 Questionnaire LETI-7 AMB Questionnaire LETI-7 Date LETI - 7 assessed: 12/04/23 Source: Developed by Drs. Jeff Goncalves, Anu Landin, Nathan Tejeda and colleagues, with an educational nguyen from [employer]. Physical exam (Primary Care) Vital Signs: Last Vital Signs Temp 99 F 05/03/24 15:20 Pulse 72 05/03/24 15:20 BP 114/70 05/03/24 15:20 Pulse Ox 99 05/03/24 15:20 Oxygen Delivery Method Room Air 05/03/24 15:20 BMI result Body Mass Index 29.9 Tobacco/Smoking Status: Tobacco use Status Tobacco use date assessed 04/02/24 05/03/24 15:24 Patient Tobacco Use Status Never used Tobacco 05/03/24 15:24 e-Cigarette/Vaping Use Never Used 05/03/24 15:24 Assessment and Plan Assessment & Plan (1) Uncontrolled diabetes mellitus with hyperglycemia: Code(s): E11.65 - Type 2 diabetes mellitus with hyperglycemia Plan: A1c?had?climbed?to?9.0%?at?last?check. Had?not?been?able?to?get?Ozempic?covered. Recently?recent?Trulicity?as?it?was?back?in?stock?but?her?insurance?is?now?requiring?a?prior?authorization. A1c?today?8.2%?which?is?improved?but?still?too?high She?will?increase?Lantus?to?14?units?per?day?and?continue?metformin. We?will?continue?to?work?on?getting?Trulicity?back (2) Depression with anxiety: Code(s): F41.8 - Other specified anxiety disorders Plan: Significant?stressors?from?the?loss?of?a?20?year?long?relationship.??She?would?like?connection?to?a?therapist. I?have?asked?the?nurse?navigator?to?speak?to?her?today. Coding Level of Care Code Est Pt Level 3 (86978) Diagnoses Uncontrolled diabetes mellitus with hyperglycemia E11.65 Depression with anxiety F41.8
== END 2024-05-03 16:11 | disposition home or self-care (01) ==
PROVIDERS: PCP Family Medicine; Visit Provider Family Medicine
DX: E11.65 Type 2 diabetes mellitus with hyperglycemia (principal); F41.8 Other specified anxiety disorders
CPT/HCPCS: 99213

== ENCOUNTER 2024-08-04 12:41 | Outpatient (AMB) | payer OTHER, SELFPAY ==
--- NOTE | 2024-08-04 12:50 | A.OFFVIS_ITS ---
Vital Signs 08/04/24 12:52 Height 5 ft 7 in Weight 194 lb 0.108 oz BMI 30.4 BP 118/78 Blood Pressure Location Rt brachial Position Sitting Pulse 90 Pulse Source Pulse Oximeter Intake Visit Reasons: T2DM/LVM Intake Note: NEW Patient presents today to establish treatment for Type 2 Diabetes Mellitus: Last Diabetic eye exam was on: 07/2024 Last Podiatry exam was on: Does not see a Entertainment & Media Correspondent Most recent HbA1c: 9.4%, 08/04/2024 Random Glucose- 257mg/dL, Today Master Glazier Required: No Accompanied by: Self / Same As Patient Allergies ampicillin [AMPICILLIN] Allergy (Severe, Verified 08/04/24 12:50) RASH Medication List - Last Reconciled 08/04/24 by Gauri Medina MD atorvastatin 80 mg PO DAILY 90 days biotin 10,000 mcg PO DAILY blood-glucose meter (Blood Glucose Monitoring kit) check blood sugar daily and prn bupropion HCl SR 200 mg PO BID 90 days cetirizine (Allergy Relief (cetirizine)) 10 mg PO DAILY PRN clonazepam 0.5 mg PO DAILY PRN 30 days cyclobenzaprine 10 mg PO TID PRN 30 days fluoxetine 40 mg PO DAILY FreeStyle Jonathan 3 [place] (blood-glucose meter,continuous) As directed NS FreeStyle Jonathan 3 Sensor (blood-glucose sensor) every 14 days NS insulin glargine (Lantus Solostar U-100 Insulin) 10 units (0.1 mL) subcut QPM 30 days lancets (FreeStyle Lancets) As directed lisinopril 2.5 mg PO DAILY metformin 1,000 mg (2 x 500 mg) PO BID 90 days Mounjaro (tirzepatide) 2.5 mg (0.5 mL) subcut QWEEK NS multivitamin (Daily Multi-Vitamin tablet) 1 tab PO DAILY omeprazole 40 mg PO DAILY pen needle, diabetic (BD Ultra-Fine Micro Pen Needle) To treat blood sugar, daily as directed, 90 days scopolamine base 1 patch transdermal Q3D PRN 30 days HPI Comments Details: The patient is a 54 year old female with a past medical history of type 2 diabetes presenting for diabetes Medical history: Hyperlipidemia Diagnosed with diabetes ~49 y/o Current prescriptions: metformin 500mg twice daily, Lantus. Was on trulicity- there was stock issues hasnt had. Ozempic was approved A1C today 9.3%. Has not been taking her lantus. Denies hypoglycemia Microvascular/macrovascular: no known complications Denies neuropathy. UTD eye exam On statin Family history of type 2 diabetes on fathers side ROS CONSTITUTIONAL: Denies weight loss, fever and chills. HEENT: Denies changes in vision and hearing. RESPIRATORY: Denies SOB and cough. CV: Denies palpitations and CP GI: Denies abdominal pain, nausea, vomiting and diarrhea. : Denies dysuria and urinary frequency. MSK: Denies new myalgia and joint pain. SKIN: Denies rash and pruritus. NEUROLOGICAL: Denies headache PSYCHIATRIC: Denies recent changes in mood. PHYSICAL EXAM: GENERAL: Alert and oriented x 3. NAD EYES: EOMI. Anicteric. HENT: Moist mucous membranes. No scleral icterus. No cervical lymphadenopathy. LUNGS: Clear to auscultation bilaterally. CARDIOVASCULAR: Regular rate and rhythm. No murmur. No JVD. ABDOMEN: Soft, non-tender +bs EXTREMITIES: No edema. Non-tender. SKIN: No rashes or lesions. Warm. NEUROLOGIC: No focal neurological deficits. CN II-XII grossly intact PSYCHIATRIC: Cooperative. Appropriate mood and affect [facility] Medical History Irregular menses Hot flashes Anxiety Diabetes Depression Surgical History History of tubal ligation Family History Mother Coronary heart disease Father Coronary heart disease Diabetes History of heart attack Other Mental health disorder Social History Housing: House Alcohol intake: current Alcohol intake frequency: a few times a month Alcohol type: hard liquor Patient Tobacco Use Status: Never used Tobacco Cigarettes Per Day: 2 e-Cigarette/Vaping Use: Never Used Second Hand Smoke Exposure: No service: No Current occupational status: employed Current occupation: [employer] Current occupational exposures/hazards: No Gender identity: Female Cognitive needs: No Hearing needs: No Vision needs: Yes (glasses) Female Reproductive History Menstrual Age of Menarche: 13 Physical Exam Vital Signs: Last Vital Signs Pulse 90 08/04/24 12:52 BP 118/78 08/04/24 12:52 BMI result Body Mass Index 30.4 Results AMB Hemoglobin A1c AMB Hemoglobin A1c 9.4 % Last Edit by MERRY Brandt on 08/04/24 13:13 Assessment & Plan Assessment & Plan (1) Uncontrolled diabetes mellitus with hyperglycemia: Code(s): E11.65 - Type 2 diabetes mellitus with hyperglycemia Category: Medical Qualifiers: Diabetes mellitus type: type 2 Qualified Code(s): E11.65 - Type 2 diabetes mellitus with hyperglycemia Plan: Start mounjaro. Requires prior authorization which will be sent Increase metformin to 1000mg twice daily Lantus Jonathan CGM ordered-PA to be sent Start KIM Orders: Orders AMB Hemoglobin A1c Today E11.65 - Type 2 diabetes mellitus with hyperglycemia Medications: New FreeStyle Jonathan 3 [place] (blood-glucose meter,continuous) As directed 1 ea 0RF NS E11.65 - Type 2 diabetes mellitus with hyperglycemia Mounjaro (tirzepatide) for 4 weeks 2.5 mg (0.5 mL) subcut QWEEK 2 mL 0RF NS E11.65 - Type 2 diabetes mellitus with hyperglycemia FreeStyle Jonathan 3 Sensor (blood-glucose sensor) every 14 days 6 ea 3RF NS E11.65 - Type 2 diabetes mellitus with hyperglycemia lisinopril 2.5 mg PO DAILY 90 tabs 3RF Changed From metformin 500 mg PO DAILY 90 days 90 tabs 2RF E11.9 - Type 2 diabetes mellitus without complications To metformin 1,000 mg (2 x 500 mg) PO BID 90 days 360 tabs 2RF E11.9 - Type 2 diabetes mellitus without complications Discontinued dulaglutide Discontinued Reason: Doctor's Order 1.5 mg (0.5 mL) subcut QWEEK 28 days 2 mL 2RF Coding Level of Care Code Est Pt Level 5 (52028) Diagnoses Uncontrolled type 2 diabetes mellitus with hyperglycemia E11.65 Diabetes mellitus type: type 2 Time Spent (min) 45
[2024-08-04 12:52] VITALS: BP 118/78; PULSE 90; BMI 30.4
[2024-08-04 13:08] LABS: Glucose, Whole Blood 257 mg/dL (60-115)
== END 2024-08-04 13:33 | disposition home or self-care (01) ==
PROVIDERS: PCP Family Medicine; Visit Provider Internal Medicine
DX: E11.65 Type 2 diabetes mellitus with hyperglycemia (principal)

== ENCOUNTER → 2024-08-04 12:41 | Outpatient (BNVA) | payer OTHER, SELFPAY | PROVIDERS: PCP Family Medicine; Visit Provider Internal Medicine | DX: E11.65 Type 2 diabetes mellitus with hyperglycemia (principal) | CPT/HCPCS: 82947; 83036; 99212 ==

== ENCOUNTER 2024-09-29 14:10 | Outpatient (AMB) | payer OTHER, SELFPAY ==
--- NOTE | 2024-09-29 14:19 | MHC.OFFVIS ---
Vital Signs 09/29/24 14:21 Height 5 ft 7 in Weight 194 lb 14.218 oz BMI 30.5 BP 124/86 Blood Pressure Location Rt brachial Position Sitting Pulse 74 Pulse Source Pulse Oximeter Intake Visit Reasons: DM/LVM Intake Note: Patient present today to follow up on Type 2 Diabetes Mellitus. Last Diabetic Eye exam: 07/2024 Last Podiatry Visit: Does not see a Senior Product Designer Random Glucose: 110 mg/dl HgA1C: 9.4% 08/04/24 Soyfreeze Operator Required: No Accompanied by: Self / Same As Patient Allergies ampicillin [AMPICILLIN] Allergy (Severe, Verified 09/29/24 14:23) RASH HPI Comments Details: The patient is a 54 year old female with a past medical history of type 2 diabetes presenting for diabetes Medical history: Hyperlipidemia Diagnosed with diabetes ~49 y/o Current prescriptions: metformin 1000mg twice daily (usually takes less 2/2 GI side effects), Lantus. She has tried and been intolerant of jardiance, januvia, and glipizide in the past. Was on trulicity-there was stock issues hasnt had. Ozempic was approved then insurance more recently denied trulicity, ozempic and mounjaro. A1C today last month 9.4%. Was in 6s when on GLP Denies hypoglycemia Microvascular/macrovascular: no known complications Denies neuropathy. UTD eye exam On statin Family history of type 2 diabetes on fathers side ROS CONSTITUTIONAL: Denies weight loss, fever and chills. HEENT: Denies changes in vision and hearing. RESPIRATORY: Denies SOB and cough. CV: Denies palpitations and CP GI: Denies abdominal pain, nausea, vomiting and diarrhea. : Denies dysuria and urinary frequency. MSK: Denies new myalgia and joint pain. SKIN: Denies rash and pruritus. NEUROLOGICAL: Denies headache PSYCHIATRIC: Denies recent changes in mood. PHYSICAL EXAM: GENERAL: Alert and oriented x 3. NAD EYES: EOMI. Anicteric. HENT: Moist mucous membranes. No scleral icterus. No cervical lymphadenopathy. LUNGS: Clear to auscultation bilaterally. CARDIOVASCULAR: Regular rate and rhythm. No murmur. No JVD. ABDOMEN: Soft, non-tender +bs EXTREMITIES: No edema. Non-tender. SKIN: No rashes or lesions. Warm. NEUROLOGIC: No focal neurological deficits. CN II-XII grossly intact PSYCHIATRIC: Cooperative. Appropriate mood and affect [facility] Medical History Irregular menses Hot flashes Anxiety Diabetes Depression Surgical History History of tubal ligation Family History Mother Coronary heart disease Father Coronary heart disease Diabetes History of heart attack Other Mental health disorder Social History Housing: House Alcohol intake: current Alcohol intake frequency: a few times a month Alcohol type: hard liquor Patient Tobacco Use Status: Never used Tobacco Cigarettes Per Day: 2 e-Cigarette/Vaping Use: Never Used Second Hand Smoke Exposure: No service: No Current occupational status: employed Current occupation: [employer] Current occupational exposures/hazards: No Gender identity: Female Cognitive needs: No Hearing needs: No Vision needs: Yes (glasses) Female Reproductive History Menstrual Age of Menarche: 13 Physical Exam Vital Signs: Last Vital Signs Pulse 74 09/29/24 14:21 BP 124/86 09/29/24 14:21 BMI result Body Mass Index 30.5 Results Reviewed Results Reviewed: Laboratory Last Values Glucose (Clinic) 110 mg/dL (60-115) 09/29/24 14:33 Assessment & Plan Assessment & Plan (1) Uncontrolled diabetes mellitus with hyperglycemia: Code(s): E11.65 - Type 2 diabetes mellitus with hyperglycemia Category: Medical Qualifiers: Diabetes mellitus type: type 2 Qualified Code(s): E11.65 - Type 2 diabetes mellitus with hyperglycemia Plan: Patient has tried and failed multiple medications in the past. She will continue metformin and hopefully insurance will approve her GLP once again given intolerance/ineffectiveness of other medications Medications: New Trulicity (dulaglutide) 0.75 mg (0.5 mL) subcut QWEEK 2 mL 3RF NS Coding Level of Care Code Est Pt Level 4 (48511) Diagnoses Uncontrolled type 2 diabetes mellitus with hyperglycemia E11.65 Diabetes mellitus type: type 2
[2024-09-29 14:21] VITALS: BP 124/86; PULSE 74; BMI 30.5
[2024-09-29 14:40] LABS: Glucose, Whole Blood 110 mg/dL (60-115)
== END 2024-09-29 14:48 | disposition home or self-care (01) ==
PROVIDERS: PCP Family Medicine; Visit Provider Internal Medicine
DX: E11.65 Type 2 diabetes mellitus with hyperglycemia (principal)

== ENCOUNTER → 2024-09-29 14:10 | Outpatient (BNVA) | payer OTHER, SELFPAY | PROVIDERS: PCP Family Medicine; Visit Provider Internal Medicine | DX: E11.65 Type 2 diabetes mellitus with hyperglycemia (principal); Z79.84 Long term (current) use of oral hypoglycemic drugs | CPT/HCPCS: 82947; 99212 ==

== ENCOUNTER → 2024-12-14 10:38 | Outpatient (BNVA) | payer OTHER, SELFPAY | PROVIDERS: PCP Family Medicine; Visit Provider Advanced Practice Midwife | DX: N63.10 Unspecified lump in the right breast, unspecified quadrant (principal) | CPT/HCPCS: 99212 ==

== ENCOUNTER 2024-12-30 10:20 | Outpatient (REF) | payer OTHER, SELFPAY ==
--- NOTE | ~2024-12-30 | MM_ITS ---
EXAMINATION: MM DIAGNOSTIC DIGITAL BREAST TOMOSYNTHESIS, BILATERAL Limited right breast ultrasound. CLINICAL INFORMATION: Palpable right breast lump 6:00 below the area left. COMPARISON: Mammography: Comparison is made with relevant prior exams. TECHNIQUE: Digital breast mammography with tomosynthesis is performed in both the craniocaudal and mediolateral oblique views along with computer-aided detection (CAD). Limited right breast ultrasound. FINDINGS: There are scattered areas of fibroglandular density (ACR BI-RADS breast composition Category b). BB marker in the lower central breast anterior depth without underlying abnormality denoting the site of patient's palpable lump. There are no significant masses, abnormal calcifications, or other abnormalities. Targeted color Doppler ultrasound scanning in the area the patient's palpable lump in the right breast from 40 8:00 demonstrates normal fibroglandular breast tissue. There is no sonographic abnormality. Results are provided to the patient at time of visit by the technologist. MM/MM tomosynthesis diagnostic BI IMPRESSION: Right: No mammographic or sonographic abnormality to account for the patient's right breast palpable lump. Recommend clinical evaluation and follow-up. Left: Negative. ASSESSMENT: BI-RADS BI-RADS 1 - Negative RECOMMENDATION: 1 year F/U This patient's information was entered into a reminder system with a target due date for their next mammogram. Electronically signed by: Aimee Paiz DO 12/30/2024 11:31 AM AVINASH
--- OUTSIDE RECORDS SUMMARY | 2024-12-30 12:01 | XMS_ITS | Patient Health Record ---
Author Organization [facility] Address [address] [place] [address] Care Team Providers Care Scallop Shucker Name Role Phone Meli Camejo Unavailable [phone] Reason For Referral No Information Medications Medication SIG (Take, Route, Fr equency, Duration) Notes Start Date End Date Status Ativan 0.5MG ORAL for -3 Jose-MJ 08/08/2014 Acti ve Naproxen 500MG ORAL for -3 Jose-MJ 08/08/2014 Ac tive Problems Problem Type SNOMED Code ICD Code Onset Dates Problem Status W/U Status Risk Notes Problem Obesity (191833764) Obesity, unspecified (278.00) Active confirmed Major Problem Anxiety state (832141842) Anxiety state, unspecified (300.00) Active confirmed Major Problem Asthma (disorder) (628355818) Asthma, unspecified, unspecified status (493.90) Active confirmed Major Problem Excessive and frequent menstruation (641285111) Excessive or frequent menstruation (626.2) Active confirmed Diag Problem Osteoarthritis (926375047) Osteoarthrosis, unspecified whether generalized or localized, unspecified site (715.90) Active confirmed Major Plan Of Treatment No Information Insurance Providers Payer Name Payer Address Payer Phone Subscriber Number Group Number Insured Name Patient Relationship to Insured Coverage Start Date Coverage End Date [facility] [employer] [facility] [address] [address] [place] [address] [id number] LAVERNE AC Self - patient is the insured
== END 2024-12-30 10:21 | disposition home or self-care (01) ==
LOC: HO.MAMMO 10:20
PROVIDERS: PCP Family Medicine; Visit Provider Family Medicine
DX: N63.14 Unspecified lump in the right breast, lower inner quadrant (principal); E11.65 Type 2 diabetes mellitus with hyperglycemia; Z79.84 Long term (current) use of oral hypoglycemic drugs
CPT/HCPCS: 76642; 77062; 77066; 82947; 83036; 99212

== ENCOUNTER → 2024-12-30 10:25 | Outpatient (BNV) | payer OTHER, SELFPAY | PROVIDERS: PCP Family Medicine; Visit Provider Internal Medicine | DX: N63.14 Unspecified lump in the right breast, lower inner quadrant (principal) | CPT/HCPCS: 76642; 77062; 77066 ==

== ENCOUNTER 2024-12-30 16:12 | Outpatient (AMB) | payer OTHER, SELFPAY ==
--- NOTE | 2024-12-30 16:21 | A.OFFVIS_ITS ---
Vital Signs 12/30/24 16:22 Height 5 ft 7 in Weight 194 lb 0.108 oz BMI 30.4 BP 112/68 Blood Pressure Location Rt brachial Position Sitting Pulse 68 Pulse Source Pulse Oximeter Pulse Oximetry (%) 98 Oxygen Delivery Method Room Air Intake Visit Reasons: DM Intake Note: Patient presents today for a follow-up on Type 2 Diabetes Mellitus: Last Diabetic eye exam was on: 07/2024 Last Podiatry exam was on: Does not see a Doctor Of Medicine Most recent HbA1c: 7.5%, 12/30/2024 Random Glucose- 129 mg/dL, Today Data Developer Required: No Accompanied by: Self / Same As Patient Allergies ampicillin [AMPICILLIN] Allergy (Severe, Verified 12/14/24 10:40) RASH Medication List - Last Reconciled 12/30/24 by Gauri Medina MD atorvastatin 80 mg PO DAILY 90 days biotin 10,000 mcg PO DAILY blood-glucose meter (Blood Glucose Monitoring kit) check blood sugar daily and prn bupropion HCl SR 200 mg PO BID 90 days cetirizine (Allergy Relief (cetirizine)) 10 mg PO DAILY PRN clonazepam 0.5 mg PO DAILY PRN 30 days cyclobenzaprine 10 mg PO TID PRN 30 days fluoxetine 40 mg PO DAILY FreeStyle Lancets (lancets) As directed NS FreeStyle Lite Meter (blood-glucose meter) As directed NS FreeStyle Lite Strips (blood sugar diagnostic) As directed NS lancets (FreeStyle Lancets) As directed metformin 1,000 mg (2 x 500 mg) PO BID 90 days multivitamin (Daily Multi-Vitamin tablet) 1 tab PO DAILY omeprazole 40 mg PO DAILY pen needle, diabetic (BD Ultra-Fine Micro Pen Needle) To treat blood sugar, daily as directed, 90 days scopolamine base 1 patch transdermal Q3D PRN 30 days Trulicity (dulaglutide) 0.75 mg (0.5 mL) subcut QWEEK NS HPI Comments Details: The patient is a 54 year old female with a past medical history of type 2 diabetes presenting for diabetes Medical history: Hyperlipidemia Diagnosed with diabetes ~49 y/o Current prescriptions: metformin 1000mg twice daily (usually takes less 2/2 GI side effects), Lantus. She has tried and been intolerant of jardiance, januvia, and glipizide in the past. Was on trulicity-there was stock issues hasnt had. Ozempic was approved then insurance more recently denied trulicity, ozempic and mounjaro. A1C is 7.5% today. A1C Nov 9.4%. Was in 6s when on GLP Denies hypoglycemia Microvascular/macrovascular: no known complications Denies neuropathy. UTD eye exam On statin Family history of type 2 diabetes on fathers side ROS CONSTITUTIONAL: Denies weight loss, fever and chills. HEENT: Denies changes in vision and hearing. RESPIRATORY: Denies SOB and cough. CV: Denies palpitations and CP GI: Denies abdominal pain, nausea, vomiting and diarrhea. : Denies dysuria and urinary frequency. MSK: Denies new myalgia and joint pain. SKIN: Denies rash and pruritus. NEUROLOGICAL: Denies headache PSYCHIATRIC: Denies recent changes in mood. PHYSICAL EXAM: GENERAL: Alert and oriented x 3. NAD EYES: EOMI. Anicteric. HENT: Moist mucous membranes. No scleral icterus. No cervical lymphadenopathy. LUNGS: Clear to auscultation bilaterally. CARDIOVASCULAR: Regular rate and rhythm. No murmur. No JVD. ABDOMEN: Soft, non-tender +bs EXTREMITIES: No edema. Non-tender. SKIN: No rashes or lesions. Warm. NEUROLOGIC: No focal neurological deficits. CN II-XII grossly intact PSYCHIATRIC: Cooperative. Appropriate mood and affect [facility] Medical History (Updated 12/14/24 @ 11:18 by Glendy Velazquez CNM) Breast mass, right Irregular menses Hot flashes Anxiety Diabetes Depression Surgical History History of tubal ligation Family History Mother Coronary heart disease Father Coronary heart disease Diabetes History of heart attack Other Mental health disorder Social History Housing: House Alcohol intake: current Alcohol intake frequency: a few times a month Alcohol type: hard liquor Patient Tobacco Use Status: Never used Tobacco Cigarettes Per Day: 2 e-Cigarette/Vaping Use: Never Used Second Hand Smoke Exposure: No service: No Current occupational status: employed Current occupation: [employer] Current occupational exposures/hazards: No Gender identity: Female Cognitive needs: No Hearing needs: No Vision needs: Yes (glasses) Female Reproductive History Menstrual Age of Menarche: 13 Physical Exam Vital Signs: BMI result Body Mass Index 30.4 Results AMB Hemoglobin A1c AMB Hemoglobin A1c 7.5 % Last Edit by MERRY Brandt on 12/30/24 16:35 Assessment & Plan Assessment & Plan Orders: Orders AMB Hemoglobin A1c Today E11.65 - Type 2 diabetes mellitus with hyperglycemia Medications: New dulaglutide (Trulicity) 1.5 mg (0.5 mL) subcut QWEEK 6 mL 3RF E11.65 - Type 2 diabetes mellitus with hyperglycemia Coding
[2024-12-30 16:22] VITALS: BP 112/68; PULSE 68; O2SAT 98; BMI 30.4
[2024-12-30 16:29] LABS: Glucose, Whole Blood 129 mg/dL (60-115)
== END 2024-12-30 16:46 | disposition home or self-care (01) ==
PROVIDERS: PCP Family Medicine; Visit Provider Internal Medicine
DX: E11.65 Type 2 diabetes mellitus with hyperglycemia (principal)

== ENCOUNTER 2025-01-13 13:32 | Outpatient (AMB) | payer OTHER, SELFPAY ==
--- NOTE | 2025-01-13 13:37 | MHC.OFFVIS ---
Vital Signs 01/13/25 13:38 Height 5 ft 7 in Weight 194 lb BMI 30.4 BP 110/78 Intake Visit Reasons: Annual/Breast US follow up Flight Operations Dispatch Clerk: Flight Operations Dispatch Clerk Present (Rosa Isela) Allergies ampicillin [AMPICILLIN] Allergy (Severe, Verified 01/13/25 13:38) RASH HPI Comments Details: She is a postmenopausal woman presenting for her annual external grinder tool examination. She is doing well with external grinder tool concerns. Not having any breast concerns. Recent ultrasound and mammogram obtained for breast lump evaluation. LMP 2022. Currently sexually active. Denies any vaginal dryness or irritation. STI testing offered; she declined. Attempting to eat a healthy diet with calcium and vitamin D and stays active with exercise-gym 4xwks. Last pap smear; 2019, negative. Last mammogram; 2024. Colonoscopy is UTD. Denies any family history of breast, ovarian or colon cancer. [facility] Medical History Breast mass, right Hot flashes Anxiety Diabetes Depression Surgical History History of tubal ligation Family History Mother Coronary heart disease Father Coronary heart disease Diabetes History of heart attack Other Mental health disorder Social History Housing: House Alcohol intake: current Alcohol intake frequency: a few times a month Alcohol type: hard liquor Patient Tobacco Use Status: Never used Tobacco Cigarettes Per Day: 2 e-Cigarette/Vaping Use: Never Used Second Hand Smoke Exposure: No service: No Current occupational status: employed Current occupation: [employer] Current occupational exposures/hazards: No Gender identity: Female Cognitive needs: No Hearing needs: No Vision needs: Yes (glasses) Female Reproductive History Menstrual Age of Menarche: 13 control method: permanent sterilization Permanent Sterilization: BTL Total pregnancies: 4 Full term: 4 Number of Living Children: 4 Date of last pap smear: 03/15/20 (neg pap and hpv) Date of Mammogram: 12/30/24 (Birad 1) Review of Systems Const All systems reviewed & are unremarkable except as noted in HPI and below Reports as per HPI Eyes Reports no additional complaints ENT Reports no additional complaints Card Reports no additional complaints Resp Reports no additional complaints GI Reports as per HPI and Reports no additional complaints Reports as per HPI Musc Reports no additional complaints Skin/Breast Reports as per HPI Neuro Reports no additional complaints Psych Reports no additional complaints Endo Reports no additional complaints Te/Lymph Reports no additional complaints Aller/Immun Reports no additional complaints Physical Exam Vital Signs: Last Vital Signs BP 110/78 01/13/25 13:38 BMI result Body Mass Index 30.4 Const General: cooperative, healthy appearing, no acute distress, well developed and alert Orientation/consciousness: patient oriented x3 HEENT Head: Yes normal to inspection Eyes General: appearance normal, both eyes and all related structures Neck Neck: Yes normal visual inspection Thyroid: Thyroid normal Chest Chest palpation & inspection: normal inspection of the chest and other (no puckering, dimpling, peau de orange, retraction, discharge, masses) Breast/axilla inspection: normal inspection of the breasts Breast/axilla palpation: normal palpation of the breasts Resp Effort & Inspection: normal respiratory effort GI Inspection: Yes normal to inspection Palpation (GI): Soft to palpation Rectal Exam - Female: deferred General: Yes bladder normal to palpation External Female Exam: normal external appearance and normal appearance of the urethra Speculum Exam - Vagina: normal appearance of the vagina, normal palpation and normal vaginal discharge Speculum Exam - Cervix: normal appearance of the cervix, normal palpation and Other cervical findings present (Bled slightly with Pap) Bimanual exam- vagina & uterus: normal bimanual exam, normal palpation, uterine size normal, bladder normal to palpation, normal palpation and non-tender Bimanual Exam- Adnexa, other: no masses Skin General skin exam: no rashes or lesions noted Rashes: no rashes Neuro General: patient oriented x3 Cognition (Neuro): normal cognition Extrem General: Yes normal to inspection Psych Attitude: cooperative Thought process: Normal thought process present Assessment & Plan Assessment & Plan (1) Encounter for well woman exam with routine gynecological exam: Code(s): Z01.419 - Encounter for gynecological examination (general) (routine) without abnormal findings Category: Medical Plan Discussed: Current recommendations for pap smears per ASCCP guidelines. Pap obtained today. Breast awareness, periodic self breast exams and yearly mammogram. Reviewed imaging report-negative no findings. Patient has no further concerns, routine follow up per radiology recommendations. Maintain a healthy lifestyle, well balanced diet including Calcium 1,200 mg and Vitamin D 600 IU daily, and routine exercise. Contact the office with any postmenopausal bleeding. Patient verbalizes understanding and agrees to the plan of care. She was given opportunity to ask questions and all questions were answered to the best of my ability. RTO in 1 year for annual external grinder tool exam. This note is constructed using voice recognition software. While every effort has been made to ensure accuracy, photographer aerial errors may have been included. Coding Level of Care Code Est Pt Prev Care 40-64y(05961) Diagnoses Encounter for well woman exam with routine gynecological exam Z01.419
[2025-01-13 13:38] VITALS: BP 110/78; BMI 30.4
--- OUTSIDE RECORDS SUMMARY | 2025-01-13 17:06 | XMS_ITS | Patient Health Record ---
Author Organization [facility] Address [address] [place] [address] Care Team Providers Care Wood Club Neck Whipper Name Role Phone Meli Camejo Unavailable [phone] Reason For Referral No Information Medications Medication SIG (Take, Route, Fr equency, Duration) Notes Start Date End Date Status Ativan 0.5MG ORAL for -3 Jose-MJ 08/08/2014 Acti ve Naproxen 500MG ORAL for -3 [facility] 08/08/2014 Ac tive Problems Problem Type SNOMED Code ICD Code Onset Dates Problem Status W/U Status Risk Notes Problem Obesity (373398867) Obesity, unspecified (278.00) Active confirmed Major Problem Anxiety state (419515382) Anxiety state, unspecified (300.00) Active confirmed Major Problem Asthma (disorder) (518275992) Asthma, unspecified, unspecified status (493.90) Active confirmed Major Problem Excessive and frequent menstruation (974285860) Excessive or frequent menstruation (626.2) Active confirmed Diag Problem Osteoarthritis (511817993) Osteoarthrosis, unspecified whether generalized or localized, unspecified site (715.90) Active confirmed Major Plan Of Treatment No Information Insurance Providers Payer Name Payer Address Payer Phone Subscriber Number Group Number Insured Name Patient Relationship to Insured Coverage Start Date Coverage End Date [facility] [email or web address] [facility] [address] [address] [place] [address] [id number] LAVERNE AC Self - patient is the insured
== END 2025-01-13 14:21 | disposition home or self-care (01) ==
LOC: HO.HWS 13:32
PROVIDERS: PCP Family Medicine; Visit Provider Advanced Practice Midwife
DX: Z01.419 Encounter for gynecological examination (general) (routine) without abnormal findings (principal)
CPT/HCPCS: 99396; 99459

== ENCOUNTER 2025-01-13 13:32 | Outpatient (REF) | payer OTHER, SELFPAY ==
[2025-01-21 09:11] LABS: HPV Genotype 16 Negative (Negative); HPV Genotype 18 Negative (Negative); HPV High Risk Negative (Negative)
== END 2025-01-13 13:33 | disposition home or self-care (01) ==
LOC: HO.LNP 13:32
PROVIDERS: Advanced Practice Midwife; PCP Family Medicine; Visit Provider Advanced Practice Midwife
DX: Z01.419 Encounter for gynecological examination (general) (routine) without abnormal findings (principal); Z11.51 Encounter for screening for human papillomavirus (HPV)
CPT/HCPCS: 87626; 88175; 99396; 99459

== ENCOUNTER 2025-03-14 16:01 | Outpatient (REF) | payer OTHER, SELFPAY | END 2025-03-14 16:02 | disposition home or self-care (01) | LOC: HO.LNP 16:01 | PROVIDERS: PCP Family Medicine; Visit Provider Obstetrics & Gynecology | DX: R87.619 Unspecified abnormal cytological findings in specimens from cervix uteri (principal) | CPT/HCPCS: 57454; 58110; 88305 ==

== ENCOUNTER 2025-03-14 16:01 | Outpatient (AMB) | payer OTHER, SELFPAY ==
--- OUTSIDE RECORDS SUMMARY | 2025-03-14 16:03 | XMS_ITS | Patient Health Record ---
Author Organization [facility] Address [address] [place] [address] Care Team Providers Care Administrative Law Judge Name Role Phone Meli Camejo Unavailable [phone] Reason For Referral No Information Medications Medication SIG (Take, Route, Fr equency, Duration) Notes Start Date End Date Status Ativan 0.5MG ORAL for -3 Jose-MJ 08/08/2014 Acti ve Naproxen 500MG ORAL for -3 Jose-MJ 08/08/2014 Ac tive Problems Problem Type SNOMED Code ICD Code Onset Dates Problem Status W/U Status Risk Notes Problem Obesity (886478906) Obesity, unspecified (278.00) Active confirmed Major Problem Anxiety state (551534880) Anxiety state, unspecified (300.00) Active confirmed Major Problem Asthma (disorder) (603739984) Asthma, unspecified, unspecified status (493.90) Active confirmed Major Problem Excessive and frequent menstruation (433917383) Excessive or frequent menstruation (626.2) Active confirmed Diag Problem Osteoarthritis (179472268) Osteoarthrosis, unspecified whether generalized or localized, unspecified site (715.90) Active confirmed Major Plan Of Treatment No Information Insurance Providers Payer Name Payer Address Payer Phone Subscriber Number Group Number Insured Name Patient Relationship to Insured Coverage Start Date Coverage End Date [facility] [employer] [facility] [address] [address] [place] [address] [id number] LAVERNE AC Self - patient is the insured
--- NOTE | 2025-03-14 16:07 | A.OFFVIS_ITS ---
Vital Signs 03/14/25 16:09 Height 5 ft 7 in Weight 194 lb BMI 30.4 Intake Visit Reasons: Colposcopy Engineering Program Manager Required: No Information Interpreted: non-clinical & clinical Winch Operator: Winch Operator Present (Ashley SOUSA) Accompanied by: Self / Same As Patient Allergies ampicillin [AMPICILLIN] Allergy (Severe, Verified 03/14/25 16:11) RASH HPI Comments Details: Presenting referred from Glendy Velazquez for atypical glandular cells of undetermined significance, HPV negative [facility] Medical History (Updated 03/14/25 @ 16:11 by Arash Redmond MD) Atypical glandular cells of undetermined significance (HARJIT) on cervical Pap smear Breast mass, right Hot flashes Anxiety Diabetes Depression Surgical History History of tubal ligation Family History Mother Coronary heart disease Father Coronary heart disease Diabetes History of heart attack Other Mental health disorder Social History Housing: House Alcohol intake: current Alcohol intake frequency: a few times a month Alcohol type: hard liquor Patient Tobacco Use Status: Never used Tobacco Cigarettes Per Day: 2 e-Cigarette/Vaping Use: Never Used Second Hand Smoke Exposure: No service: No Current occupational status: employed Current occupation: [employer] Current occupational exposures/hazards: No Gender identity: Female Cognitive needs: No Hearing needs: No Vision needs: Yes (glasses) Female Reproductive History Menstrual Age of Menarche: 13 Review of Systems Const All systems reviewed & are unremarkable except as noted in HPI and below Reports as per HPI and Reports no additional complaints GI Reports no additional complaints Reports no additional complaints Office Procedures Colposcopy Colposcopy: Pre-Procedure Counseling: Before beginning the procedure, I conducted comprehensive counseling with the patient. We thoroughly discussed the procedure itself, including its details, alternatives, and all associated risks. This included but not limited to the following complications such as bleeding, infection, and injury to the vagina, bladder, and vessels, as well as the potential need for transfusion with all its associated risks. Subsequently, the patient sign the consent. Pap smear result: HARJIT/ HPV negative Procedure: During the procedure, the following steps were performed: A speculum was inserted, and acetic acid was applied. Colposcopy was conducted, allowing visualization of the transformation zone. Acetowhite lesions were identified at the 4+6+9+11+12+3 o'clock position. Cervical biopsies were obtained from the 4+6+9+11+12+3 o'clock position, followed by an endocervical curettage (ECC). Vaginoscopy of the upper vagina revealed no evidence of aceto-white lesions. Hemostasis was achieved using Monsel solution, and the patient tolerated the procedure well. Post-Procedure Instructions: The patient was advised to promptly contact the office or the after hours answering service or go to the emergency room if experiencing a temperature exceeding 100.4?F, abdominal pain, nausea/vomiting, or bleeding. Additionally, the patient was instructed to abstain from vaginal intercourse and bathtub use. The patient confirmed understanding of these instructions. Discharge Instructions: The patient was instructed to schedule a follow-up appointment in 2 weeks for further evaluation and management. Please note that this note was generated using a voice recognition program, and errors may have occurred during budget controller. 47939-Ftfzrawxa of cervix including upper vagina with biopsy and ECC Procedure code (CPT) selection complete Endometrial Biopsy Details: The patient was counseled regarding the indication and benefits of endometrial sampling to rule out endometrial pathology including not limited to endometrial hyperplasia or endometrial cancer and others; The alternatives (Either do nothing vs. hysteroscopy D&C) & the risks were discussed with the patient including but not limited: pain, uterine perforation, bleeding, infection, possible injury to bladder, bowel, ureter, possible need for blood transfusion with all its possible risks. The patient verbalized understanding all questions answered and signed consent. The patient was placed into the dorsal lithotomy position; a speculum was inserted in the vagina. Using aseptic technique for the procedure, the cervix was cleansed with Betadine. The anterior lip of the cervix was grasped with a single tooth tenaculum. The uterus was sounded to 7 cm with a 4 mm Pipelle was used. Tissues samples were obtained and placed in formalin, in a patient labeled container and sent to the pathology department. At the end of the procedure, there was minimal bleeding noted The patient tolerated the procedure well and was discharged in good condition with the following instructions: Nothing in the vagina until the bleeding stops. No sex until the bleeding stops, to call if any of the following occurs: fever (>100.4), flu-like symptoms, abdominal pain, heavy bleeding, four smelling vaginal discharge. The patient was instructed to schedule a Follow up appointment in 2 weeks to discuss pathology results of the biopsy and treatment options. This note was generated with a voice recognition program. Some errors may have been overlooked during the review of this note. Sometimes these errors may affect the content or meaning of a given sentence. 28891-Ernwofibiak Biopsy Assessment & Plan Assessment & Plan (1) Atypical glandular cells of undetermined significance (HARJIT) on cervical Pap smear: Comment: HPV negative Code(s): R87.619 - Unspecified abnormal cytological findings in specimens from cervix uteri Category: Medical Plan: Discussed with the patient the result of her abnormal pap, its significance, risk of progression, persistence, and regression. the false positive/negative rate of a Pap smear as a screening test in detecting cervical cancer and the indication for a diagnostic test -colposcopy, biopsy, endocervical curettage with endometrial biopsy. The patient verbalized understanding and agreed with the plan, all questions answered. Colpo/biopsy/ECC with EMB done, see procedure note Orders: Orders AMB Colposcopy Today R87.619 - Unspecified abnormal cytological findings in specimens from cervix uteri AMB Endometrial Biopsy Today R87.619 - Unspecified abnormal cytological findings in specimens from cervix uteri Coding Level of Care Code Procedure Only Diagnoses Atypical glandular cells of undetermined significance (HARJIT) on cervical Pap smear R87.619 CPT Codes Colposcopy - CPT: 46250-Kgyslftrw of cervix including upper vagina with biopsy and ECC ([id number]) Endometrial Biopsy - CPT: 16968-Nckkkxeeqgg Biopsy ([id number])
[2025-03-14 16:09] VITALS: BMI 30.4
== END 2025-03-14 16:36 | disposition home or self-care (01) ==
LOC: HO.HWS 16:01
PROVIDERS: PCP Family Medicine; Visit Provider Obstetrics & Gynecology
DX: R87.619 Unspecified abnormal cytological findings in specimens from cervix uteri (principal)
CPT/HCPCS: 57454; 58110

== ENCOUNTER 2025-03-24 07:40 | Outpatient (AMB) | payer OTHER, SELFPAY ==
--- NOTE | 2025-03-24 07:40 | A.OFFVIS_ITS ---
Intake Visit Reasons: TV Colpo results Allergies ampicillin [AMPICILLIN] Allergy (Severe, Verified 03/14/25 16:11) RASH HPI Comments Details: The patient is scheduled tele health visit to discuss the results of colposcopy / ECC/EMB. The pathology showed the following: A. Endometrium, biopsy: Superficial strips and fragments of inactive endometrium; no atypia or hyperplasia identified. B. Endocervix, curettage: Superficial fragments of inflamed endocervical and focal squamous epithelium with reactive changes; mucoinflammatory material; no atypia identified. C. Cervix, 3 o'clock, biopsy: Mildly inflamed cervical transformation zone mucosa with reactive changes; no atypia seen. D. Cervix, 4 o'clock, biopsy: Inflamed cervical transformation zone mucosa with reactive changes; no atypia seen. E. Cervix, 6 o'clock, biopsy: Mildly inflamed squamous and endocervical mucosa with reactive changes; no atypia seen. F. Cervix, 11 o'clock, biopsy: Inflamed endocervical mucosa with reactive changes; no squamous epithelium identified; no atypia seen. G. Cervix, 12 o'clock, biopsy: Inflamed endocervical mucosa with reactive changes; no squamous epithelium identified; no atypia seen. COMMENT: The findings are concordant with the patient's recent Pap/cytology specimen ([id number]; HARJIT with negative HPV) - slide reviewed [facility] Medical History Atypical glandular cells of undetermined significance (HARJIT) on cervical Pap smear Breast mass, right Hot flashes Anxiety Diabetes Depression Surgical History History of tubal ligation Family History Mother Coronary heart disease Father Coronary heart disease Diabetes History of heart attack Other Mental health disorder Social History Housing: House Alcohol intake: current Alcohol intake frequency: a few times a month Alcohol type: hard liquor Patient Tobacco Use Status: Never used Tobacco Cigarettes Per Day: 2 e-Cigarette/Vaping Use: Never Used Second Hand Smoke Exposure: No service: No Current occupational status: employed Current occupation: [employer] Current occupational exposures/hazards: No Gender identity: Female Cognitive needs: No Hearing needs: No Vision needs: Yes (glasses) Female Reproductive History Menstrual Age of Menarche: 13 Review of Systems Const All systems reviewed & are unremarkable except as noted in HPI and below Reports as per HPI and Reports no additional complaints GI Reports no additional complaints Reports no additional complaints Telehealth Telehealth Telehealth Platform: Telephone Location of provider rendering services: practice address Location of patient: address on file Patient Identification confirmed using: Name, : Yes Telehealth method: video Patient verbally consented to treatment: Yes Patient verbally consented to billing insurance company: Yes Patient informed of any privacy concerns related to visit: Yes Minutes spent on Phone/Video with Pt.: 2 Assessment & Plan Assessment & Plan (1) Atypical glandular cells of undetermined significance (HARJIT) on cervical Pap smear: Comment: HPV negative Code(s): R87.619 - Unspecified abnormal cytological findings in specimens from cervix uteri Category: Medical Plan: Discussed with the patient the pathology results of the colposcopy biopsies & endocervical curettage/EMB ( negative). Discussed with the patient the sensitivity specificity, positive and negative predictive value in detecting cervical cancer in addition discussed the regression, persistence and progression rates. Recommended co-testing in 12 in 24 months, if cytology and or HPV are abnormal will proceed was colposcopy biopsy and endocervical curettage . Instructions given to the patient to call in case of vaginal bleeding and to schedule a co test appointment in 1 year. All questions answered the patient verbalized understanding. I spent a total of 20 minutes reviewing the chart, talking to the patient via video and documenting in the medical record. Coding Level of Care Code Tele Est Pt Level 3 (92492) Diagnoses Atypical glandular cells of undetermined significance (HARJIT) on cervical Pap smear R87.619
--- OUTSIDE RECORDS SUMMARY | 2025-03-24 07:42 | XMS_ITS | Patient Health Record ---
Author Organization [facility] Address [address] [place] [address] Care Team Providers Care Store Gift Wrap Associate Name Role Phone Meli Camejo Unavailable [phone] Reason For Referral No Information Medications Medication SIG (Take, Route, Fr equency, Duration) Notes Start Date End Date Status Ativan 0.5MG ORAL for -3 Jose-MJ 08/08/2014 Acti ve Naproxen 500MG ORAL for -3 Jose-MJ 08/08/2014 Ac tive Problems Problem Type SNOMED Code ICD Code Onset Dates Problem Status W/U Status Risk Notes Problem Obesity (923369824) Obesity, unspecified (278.00) Active confirmed Major Problem Anxiety state (911308908) Anxiety state, unspecified (300.00) Active confirmed Major Problem Asthma (disorder) (252592556) Asthma, unspecified, unspecified status (493.90) Active confirmed Major Problem Excessive and frequent menstruation (128447321) Excessive or frequent menstruation (626.2) Active confirmed Diag Problem Osteoarthritis (951435011) Osteoarthrosis, unspecified whether generalized or localized, unspecified site (715.90) Active confirmed Major Plan Of Treatment No Information Insurance Providers Payer Name Payer Address Payer Phone Subscriber Number Group Number Insured Name Patient Relationship to Insured Coverage Start Date Coverage End Date [facility] [employer] [facility] [address] [address] [place] [address] [id number] LAVERNE AC Self - patient is the insured
== END 2025-03-24 08:01 | disposition home or self-care (01) ==
LOC: HO.HWS 07:40
PROVIDERS: PCP Family Medicine; Visit Provider Obstetrics & Gynecology
DX: R87.619 Unspecified abnormal cytological findings in specimens from cervix uteri (principal)
CPT/HCPCS: 99213

== ENCOUNTER 2025-03-31 14:06 | Outpatient (AMB) | payer OTHER, SELFPAY ==
--- NOTE | 2025-03-31 14:08 | MHC.OFFVIS ---
Vital Signs 03/31/25 14:10 Height 5 ft 7 in Weight 194 lb BMI 30.4 BP 120/84 Intake Visit Reasons: vag disc Intake Note: pt c/o white discharge, burning. Patient started with symptoms after colpo 03/14/25 pt taking pyridium unable to run urine dip Supervisor Advice: Supervisor Advice Present (Rosa Isela) Allergies ampicillin [AMPICILLIN] Allergy (Severe, Verified 03/31/25 14:10) RASH HPI Comments Details: Patient is here today with external vaginal burning, recent colposcopy, urinary tract infection, currently on Pyridium. Has used Diflucan x2 doses. Does not have any external itching. Initially after colposcopy be had thick brown and white discharge. She reports the Urgent care cultures were all negative. She has changed her external mihir pad brand. Using cool compresses for relief. [facility] Medical History Atypical glandular cells of undetermined significance (HARJIT) on cervical Pap smear Breast mass, right Hot flashes Anxiety Diabetes Depression Surgical History History of tubal ligation Family History Mother Coronary heart disease Father Coronary heart disease Diabetes History of heart attack Other Mental health disorder Social History Housing: House Alcohol intake: current Alcohol intake frequency: a few times a month Alcohol type: hard liquor Patient Tobacco Use Status: Never used Tobacco Cigarettes Per Day: 2 e-Cigarette/Vaping Use: Never Used Second Hand Smoke Exposure: No service: No Current occupational status: employed Current occupation: [employer] Current occupational exposures/hazards: No Gender identity: Female Cognitive needs: No Hearing needs: No Vision needs: Yes (glasses) Female Reproductive History Menstrual Age of Menarche: 13 Review of Systems Const All systems reviewed & are unremarkable except as noted in HPI and below Physical Exam Vital Signs: Last Vital Signs BP 120/84 03/31/25 14:10 BMI result Body Mass Index 30.4 Const General: cooperative, healthy appearing and no acute distress Orientation/consciousness: patient oriented x3 GI Inspection: Yes normal to inspection Palpation (GI): Soft to palpation and Other GI palpation findings present (Nontender) Rectal Exam - Female: visual inspection normal General: Yes bladder normal to palpation External Female Exam: normal appearance of the urethra and erythema Speculum Exam - Vagina: normal appearance of the vagina, normal palpation, abnormal vaginal discharge ( Yellow watery ) and erythematous Speculum Exam - Cervix: normal appearance of the cervix, normal palpation and Other cervical findings present ( post biopsy appearance healing appropriately) Bimanual exam- vagina & uterus: normal bimanual exam, normal palpation, uterine size normal, bladder normal to palpation, normal palpation, uterine shape normal and non-tender Bimanual Exam- Adnexa, other: normal adnexae Neuro General: patient oriented x3 Assessment & Plan Assessment & Plan (1) Vaginal burning: Code(s): N94.89 - Other specified conditions associated with female genital organs and menstrual cycle Plan: Discussed: Instructions: Clean with warm water, no soaps, scented products. Use a cool cloth to the area several times a day if swollen and/or uncomfortable. Wear loose, cotton underclothes, avoid tight outer clothing. Air when possible. No coitus until well healed. Complete all medications as prescribed. Await final pending results for any changes in the plan of care. Call the office if there is no improvement in 24-48hrs., or if worsening symptoms. Use of topical corticosteroid reviewed, Rx sent in. The patient expressed understanding and agreement with the plan of care. All of her questions and concerns were addressed to the best of my ability. This note is constructed using voice recognition software. While every effort has been made to ensure accuracy, treating and pumping supervisor errors may have been included. Plan Discussed: Instructions: Clean with warm water, no soaps, scented products. Use a cool cloth to the area several times a day if swollen and/or uncomfortable. Wear loose, cotton underclothes, avoid tight outer clothing. Air when possible. No coitus until well healed. Complete all medications as prescribed. Await final pending results for any changes in the plan of care. Call the office if there is no improvement in 24-48hrs., or if worsening symptoms. Rx for topical corticosteroids sent in continue use in the cool compresses p.r.n.. Follow up in office next week if no improvement. The patient expressed understanding and agreement with the plan of care. All of her questions and concerns were addressed to the best of my ability. This note is constructed using voice recognition software. While every effort has been made to ensure accuracy, treating and pumping supervisor errors may have been included. Orders: Orders Bacterial Vaginosis Panel Today N89.8 - Other specified noninflammatory disorders of vagina Medications: New hydrocortisone valerate 0.2% apply a thin coat to area 1 appl topical BID 7 days 45 grams 0RF Coding Level of Care Code Est Pt Level 3 (78613) Diagnoses Vaginal burning N94.89
[2025-03-31 14:10] VITALS: BP 120/84; BMI 30.4
--- OUTSIDE RECORDS SUMMARY | 2025-03-31 14:18 | XMS_ITS | Patient Health Record ---
Author Organization [email or web address] Address [address] [place] [address] Care Team Providers Care Customer Account Coordinator Name Role Phone Meli Camejo Unavailable [phone] Reason For Referral No Information Medications Medication SIG (Take, Route, Fr equency, Duration) Notes Start Date End Date Status Ativan 0.5MG ORAL for -3 Jose-MJ 08/08/2014 Acti ve Naproxen 500MG ORAL for -3 [facility] 08/08/2014 Ac tive Problems Problem Type SNOMED Code ICD Code Onset Dates Problem Status W/U Status Risk Notes Problem Obesity (900854383) Obesity, unspecified (278.00) Active confirmed Major Problem Anxiety state (798653385) Anxiety state, unspecified (300.00) Active confirmed Major Problem Asthma (disorder) (835890223) Asthma, unspecified, unspecified status (493.90) Active confirmed Major Problem Excessive and frequent menstruation (589501723) Excessive or frequent menstruation (626.2) Active confirmed Diag Problem Osteoarthrosis, unspecified whether generalized or localized, unspecified site (715.90) Active confirmed Major Plan Of Treatment No Information Insurance Providers Payer Name Payer Address Payer Phone Subscriber Number Group Number Insured Name Patient Relationship to Insured Coverage Start Date Coverage End Date [facility] [employer] [facility] [address] [address] [place] [address] [id number] LAVERNE AC Self - patient is the insured
== END 2025-03-31 14:39 | disposition home or self-care (01) ==
LOC: HO.HWS 14:07
PROVIDERS: PCP Family Medicine; Visit Provider Advanced Practice Midwife
DX: N94.89 Other specified conditions associated with female genital organs and menstrual cycle (principal)
CPT/HCPCS: 99213

== ENCOUNTER 2025-03-31 14:06 | Outpatient (REF) | payer OTHER, SELFPAY ==
[2025-03-31 16:21] LABS: Bacterial Vaginosis PCR NEGATIVE (Negative); Candida Group PCR NOT DETECTED (Not Detect); Candida glab krusei PCR NOT DETECTED (Not Detect); Trichomonas vaginalis PCR NOT DETECTED (Not Detect)
== END 2025-03-31 14:07 | disposition home or self-care (01) ==
LOC: HO.LAB 14:06
PROVIDERS: PCP Family Medicine; Visit Provider Advanced Practice Midwife
DX: N94.89 Other specified conditions associated with female genital organs and menstrual cycle (principal); N89.8 Other specified noninflammatory disorders of vagina
CPT/HCPCS: 81515

== ENCOUNTER 2025-04-06 15:36 | Outpatient (AMB) | payer OTHER, SELFPAY ==
--- OUTSIDE RECORDS SUMMARY | 2025-04-06 15:44 | XMS_ITS | Patient Health Record ---
Author Organization [facility] Address [address] [place] [address] Care Team Providers Care Record Label Internship Name Role Phone Meli Camejo Unavailable [phone] Reason For Referral No Information Medications Medication SIG (Take, Route, Fr equency, Duration) Notes Start Date End Date Status Ativan 0.5MG ORAL for -3 Jose-MJ 08/08/2014 Acti ve Naproxen 500MG ORAL for -3 Jose-MJ 08/08/2014 Ac tive Problems Problem Type SNOMED Code ICD Code Onset Dates Problem Status W/U Status Risk Notes Problem Obesity (775035823) Obesity, unspecified (278.00) Active confirmed Major Problem Anxiety state (019803354) Anxiety state, unspecified (300.00) Active confirmed Major Problem Asthma (disorder) (599309195) Asthma, unspecified, unspecified status (493.90) Active confirmed Major Problem Excessive and frequent menstruation (906994770) Excessive or frequent menstruation (626.2) Active confirmed Diag Problem Osteoarthritis (701359564) Osteoarthrosis, unspecified whether generalized or localized, unspecified site (715.90) Active confirmed Major Plan Of Treatment No Information Insurance Providers Payer Name Payer Address Payer Phone Subscriber Number Group Number Insured Name Patient Relationship to Insured Coverage Start Date Coverage End Date [facility] [employer] [facility] [address] [address] [place] [address] [id number] LAVERNE AC Self - patient is the insured
--- NOTE | 2025-04-06 15:45 | MHC.OFFVIS ---
Vital Signs 04/06/25 15:49 Height 5 ft 7 in Weight 193 lb BMI 30.2 BP 110/80 Blood Pressure Location Rt brachial Position Sitting Pulse 95 Pulse Source Pulse Oximeter Pulse Oximetry (%) 98 Oxygen Delivery Method Room Air Intake Visit Reasons: T2DM Intake Note: Patient presents today for a follow-up on Type 2 Diabetes Mellitus: Last Diabetic eye exam was on: 07/2024 Last Podiatry exam was on: Does not see a Brass Chaser Most recent HbA1c:8.1% Random Glucose- 199 mg/dL, Today Allergies ampicillin [AMPICILLIN] Allergy (Severe, Verified 03/31/25 14:10) RASH HPI Comments Details: The patient is a 55 year old female presenting for diabetes Medical history: Hyperlipidemia Diagnosed with diabetes ~49 y/o Current prescriptions: metformin 1000mg twice daily (usually takes less 2/2 GI side effects), trulicity 1.5mg, lantus 10 units. Some nausea with the trulicity. She has tried and been intolerant of jardiance, januvia, and glipizide in the past. A1C has increased to 8.1 from 7.5%.. A1C Nov 9.4%. Denies hypoglycemia Microvascular/macrovascular: no known complications Denies neuropathy. UTD eye exam On statin Family history of type 2 diabetes on fathers side ROS CONSTITUTIONAL: Denies weight loss, fever and chills. HEENT: Denies changes in vision and hearing. RESPIRATORY: Denies SOB and cough. CV: Denies palpitations and CP GI: Denies abdominal pain, nausea, vomiting and diarrhea. : Denies dysuria and urinary frequency. MSK: Denies new myalgia and joint pain. SKIN: Denies rash and pruritus. NEUROLOGICAL: Denies headache PSYCHIATRIC: Denies recent changes in mood. PHYSICAL EXAM: GENERAL: Alert and oriented x 3. NAD EYES: EOMI. Anicteric. HENT: Moist mucous membranes. No scleral icterus. No cervical lymphadenopathy. LUNGS: Clear to auscultation bilaterally. CARDIOVASCULAR: Regular rate and rhythm. No murmur. No JVD. ABDOMEN: Soft, non-tender +bs EXTREMITIES: No edema. Non-tender. SKIN: No rashes or lesions. Warm. NEUROLOGIC: No focal neurological deficits. CN II-XII grossly intact PSYCHIATRIC: Cooperative. Appropriate mood and affect [facility] Medical History Atypical glandular cells of undetermined significance (HARJIT) on cervical Pap smear Breast mass, right Hot flashes Anxiety Diabetes Depression Surgical History History of tubal ligation Family History Mother Coronary heart disease Father Coronary heart disease Diabetes History of heart attack Other Mental health disorder Social History Housing: House Alcohol intake: current Alcohol intake frequency: a few times a month Alcohol type: hard liquor Patient Tobacco Use Status: Never used Tobacco Cigarettes Per Day: 2 e-Cigarette/Vaping Use: Never Used Second Hand Smoke Exposure: No service: No Current occupational status: employed Current occupation: [employer] Current occupational exposures/hazards: No Gender identity: Female Cognitive needs: No Hearing needs: No Vision needs: Yes (glasses) Female Reproductive History Menstrual Age of Menarche: 13 Physical Exam Vital Signs: Last Vital Signs Pulse 95 04/06/25 15:49 BP 110/80 04/06/25 15:49 Pulse Ox 98 04/06/25 15:49 Oxygen Delivery Method Room Air 04/06/25 15:49 BMI result Body Mass Index 30.2 Results AMB Hemoglobin A1c AMB Hemoglobin A1c 8.1 % Last Edit by MERRY Brandt on 04/06/25 16:07 Results Reviewed Results Reviewed: Laboratory Last Values Glucose (Clinic) 199 mg/dL (60-115) H 04/06/25 15:55 Assessment & Plan Assessment & Plan (1) Diabetes: Code(s): E11.9 - Type 2 diabetes mellitus without complications Category: Medical (2) Insulin use (long-term) in type 2 diabetes: Code(s): E11.9 - Type 2 diabetes mellitus without complications; Z79.4 - local intermodal truck driver (current) use of insulin Category: Medical Qualifiers: Diabetes mellitus complication status: with hyperglycemia Qualified Code(s): E11.65 - Type 2 diabetes mellitus with hyperglycemia; Z79.4 - local intermodal truck driver (current) use of insulin Plan 55 year old with diabetes presenting for follow up Has had interval increase in A1C, nausea with trulicity. Will transition her to 5mg of mounjaro as already on 1.5mg trulicity. She will follow up in 3 months or sooner as needed Orders: Orders AMB Hemoglobin A1c Today E11.65 - Type 2 diabetes mellitus with hyperglycemia Medications: New Mounjaro (tirzepatide) 5 mg (0.5 mL) subcut QWEEK 2 mL 0RF NS E11.65 - Type 2 diabetes mellitus with hyperglycemia, E11.9 - Type 2 diabetes mellitus without complications Mounjaro (tirzepatide) 5 mg (0.5 mL) subcut QWEEK 6 mL 3RF NS E11.65 - Type 2 diabetes mellitus with hyperglycemia, E11.9 - Type 2 diabetes mellitus without complications Discontinued dulaglutide (Trulicity) Discontinued Reason: Doctor's Order 1.5 mg (0.5 mL) subcut QWEEK 6 mL 3RF E11.65 - Type 2 diabetes mellitus with hyperglycemia Coding Level of Care Code Est Pt Level 4 (37516) Diagnoses Diabetes E11.9 Type 2 diabetes mellitus with hyperglycemia, with long-term current use of insulin E11.65; Z79.4 Diabetes mellitus complication status: with hyperglycemia
[2025-04-06 15:49] VITALS: BP 110/80; PULSE 95; O2SAT 98; BMI 30.2
[2025-04-06 15:59] LABS: Glucose, Whole Blood 199 mg/dL (60-115)
== END 2025-04-06 16:18 | disposition home or self-care (01) ==
LOC: HO.ENCR 15:36
PROVIDERS: PCP Family Medicine; Visit Provider Internal Medicine
DX: E11.9 Type 2 diabetes mellitus without complications (principal); E11.65 Type 2 diabetes mellitus with hyperglycemia; Z79.4 Long term (current) use of insulin

== ENCOUNTER → 2025-04-06 15:36 | Outpatient (BNVA) | payer OTHER, SELFPAY | PROVIDERS: PCP Family Medicine; Visit Provider Internal Medicine | DX: E11.65 Type 2 diabetes mellitus with hyperglycemia (principal); E78.5 Hyperlipidemia, unspecified; Z83.3 Family history of diabetes mellitus; Z79.84 Long term (current) use of oral hypoglycemic drugs; Z79.4 Long term (current) use of insulin | CPT/HCPCS: 82947; 83036; 99212 ==

== ENCOUNTER 2025-07-09 10:04 | Outpatient (REF) | payer OTHER, SELFPAY ==
--- OUTSIDE RECORDS SUMMARY | 2025-07-09 10:08 | XMS_ITS | Clinical Summary ---
Author Organization [facility] Address [address] [address] Phone Care Team Providers Care Training Executive Name Role Phone Oracio Ruiz MD Unavailable [phone] Lidia Sweeney MD Primary Care Provider Unavailabl e Medications cyclobenzaprine (FLEXERIL) 10 MG tablet Take 1 tablet by mouth daily. Active naproxen (NAPROSYN) 375 MG tablet 1 tablet Orally ONE TID Active FLUoxetine (PROZAC) 10 MG capsule Take 1 capsule by mouth every morning. Active omeprazole (PRILOSEC) 20 MG capsule 1 capsule Orally Once daily 01/02/2015 Active simethicone (GAS RELIEF) 80 mg chewable tablet 1 tablet after meals and at bedtime as needed OrallY TAKE TWO PRN (USES GAS X/ Active traZODone (DESYREL) 50 MG tablet 1 tablet at bedtime Orally Once a day PRN 02/02/2016 Active LORazepam (ATIVAN) 0.5 MG tablet 1-2 tablets Orally HS PRN insomnia 09/09/2012 Active buPROPion (WELLBUTRIN XL) 150 MG ER 24 hr tablet Take 1 tablet by mouth every morning. Active Medication-Free Text Tums 500 mg Tablet Chewable, Si tablet Orally PRN Active Family History Medical History Relation Comments Coronary artery disease Father Other Father Family history o f cardiovascular disease and hypertension Gout Mother Hyperlipidemia Mother Osteoarthritis Mother Other Mother Family history o f cardiovascular disease and hypertension Diabetes mellitus Paternal Grandmother Other Paternal Grandmother Family hist ory of diabetes mellitus Relation Status Comments Father Alive Mother Alive Paternal Grandmother Social History Tobacco Use Types Packs/Day Years Used Date Smoking Tobacco: Never Assessed Education Answer Date Recorded Are you interested in more education? Not on jeny e 02/28/2023 Are you concerned about learning? Not on file 02/28/2023 No 02/28/2023 No 02/28/2023 Digital Access Answer Date Recorded No 03/31/2023 No 03/31/2023 Reliable internet access at home? Not on file 03/31/2023 Device with a working camera? Not on file Comments Unknown Sex and Gender Information Value Date Recorded Sex Assigned at Not on file Legal Sex Female 9:34 PM EDT Gender Identity Not on file Sexual Orientation Not on file Last Filed Vital Signs Vital Sign Reading Time Taken Comments Blood Pressure 122/80 01/24/2017 8:33 AM EDT Pulse 80 01/24/2017 8:33 AM EDT Temperature 37.1 C (98.7 F) 01/24/2017 8:33 AM EDT Respiratory Rate 16 01/24/2017 8:33 AM EDT Oxygen Saturation - - Inhaled Oxygen Concentration - - Weight 98 kg (216 lb) 01/24/2017 8:33 AM EDT Height 167 cm (5' 5.75 ) 01/24/2017 8:33 AM EDT Body Mass Index 35.13 01/24/2017 8:33 AM EDT Plan of Treatment Health Maintenance Due Date Last Done Comments DEPRESSION SCREENING 1983 SMOKING Hx and SMOKELESS TOBACCO SCREENING 02/17/1984 HEPATITIS C SCREENING 1989 HIV ONE-TIME SCREENING (18-6 5 YEARS) 1989 COLOGUARD 02/17/2016 COLONOSCOPY 02/17/2016 COLORECTAL CANCER SCREENING 02/17/2016 FIT TEST 02/17/2016 FOBT 02/17/2016 SIGMOIDOSCOPY 02/17/2016 VIRTUAL COLONOSCOPY 02/17/2016 MAMMOGRAM 12/16/2016 12/16/2014 PAP SMEAR 03/25/2017 03/25/2014 PNEUMOCOCCAL VACCINES (50+ years) (1 of 1 - PCV) 2021 ZOSTER VACCINES (1 of 2) 2021 LIPID PANEL 01/24/2022 01/24/2017 Adult Td,Tdap Booster 09/09/2022 09/09/2012 , 05/13/2006 INFLUENZA VACCINE (#1) 2025 6, 08/06/2013 COVID-19 VACCINE (3 - 2024-2 6 season) 2025 12/09/2020, 11/18/2020 HEPATITIS A VACCINES Aged Out No long er eligible based on patient's age to complete this topic HIB VACCINES Aged Out No longer eligi ble based on patient's age to complete this topic MENINGOCOCCAL VACCINES (ACWY) Aged Out No longer eligible based on patient's age to complete this topic MENINGOCOCCAL VACCINES (B) Aged Out N o longer eligible based on patient's age to complete this topic Medical Devices Not on file Procedures Procedure Name Priority Date/Time Associated Diagnosis Comments OUTSIDE LDL Routine 01/24/2017 from Last 3 Months or Most Recently Relevant to Health Maintenance Results * Outside LDL (01/24/2017) LDL - External 161 50 - 250 mg/ml [facility] Provider LAB BLOOD ORDERABLES Karen l Result from Last 3 Months or Most Recently Relevant to Health Maintenance [place] [address] [place] [address] NON NSPG PCP [employer] [place] [employer] [address] [place] [address] NON NSPG PCP [employer] [place] [employer] NON NSPG PCP [place] [employer] [address] [place], [place] [address]ENSE NON NSPG PCP S[place] [facility] [address] [place], [place] [address]ENSE NON NSPG PCP S[place] [employer] NON NSPG PCP [place] [facility] [address] [place], [place] [address]ENSE NON NSPG PCP [place] [facility] [address] [place], [place] [address]ENSE NON NSPG PCP S[place]VER [place] [facility] NON NSPG PCP [facility] Care Teams Training Executive Relationship Specialty Start Date End Date Lidia Sweeney MD PCP - General Emergency Medicine 12/21/19 Oracio Ruiz MD [address] [place] [address] [email or web address] Historical LMR Provider 08/23/17 Additional Source Comments The information contained in this document represents components of the legal health record. It is not the complete legal health record.[facility]
--- OUTSIDE RECORDS SUMMARY | 2025-07-09 10:08 | XMS_ITS | Encounter Summary ---
Author Organization [facility] Address [address] [place] [address] [place] [address] Phone Care Team Providers Care Lye Boiler Name Role Phone Rajni Chao MD Unavailable Oracio Ruiz MD Unavailable [phone] Consuelo Yang MD Unavailable Gail Fry SHALE PLANER OPERATOR Unavailable Shanti Rivera SHALE PLANER OPERATOR Unavailable [phone] Lidia Sweeney MD Primary Care Provider Unavailabl e Encounter Details Date Type Department Care Team (Late st Contact Info) Description 12/21/2019 Ancillary Orders Virtual Department [address] [place] [address] Yarelis Sr, KETTY [address] [place] [address] Social History Tobacco Use Types Packs/Day Years Used Date Smoking Tobacco: Never Assessed Comments Unknown Sex and Gender Information Value Date Recorded Sex Assigned at Not on file Legal Sex Female 9:34 PM EDT Gender Identity Not on file Sexual Orientation Not on file documented as of this encounter Plan of Treatment Not on file documented as of this encounter Visit Diagnoses Not on filedocumented in this encounter Care Teams Lye Boiler Relationship Specialty Start Date End Date Lidia Sweeney MD PCP - General Emergency Medicine 12/21/19 Rajni Chao MD [address] [place] [address] Historical LMR Provider 08/23/17 2 Oracio Ruiz MD [address] [place] [address] Historical LMR Provider 08/23/17 Consuelo Yang MD [address] [facility], [address] [place] [address] Historical LMR Provider 08/23/17 11/10/21 Gail Fry NP [address] [place] [address] [address] [place] [address] Historical LMR Provider 08/23/17 2 Shanti Rivera NP [address] [facility] [address] [place] [address] Historical LMR Provider 08/23/17 11/10/21 documented as of this encounter Additional Source Comments The information contained in this document represents components of the legal health record. It is not the complete legal health record.[facility]
--- OUTSIDE RECORDS SUMMARY | 2025-07-09 10:08 | XMS_ITS | Patient Health Record ---
Author Organization [facility] Address [address] [facility] [address] [place] [address] Care Team Providers Care Search Engine Marketing Specialist Name Role Phone Meli Camejo Unavailable [phone] Reason For Referral No Information Medications Medication SIG (Take, Route, Fr equency, Duration) Notes Start Date End Date Status Ativan 0.5MG ORAL; Duration: -3 Jose-MJ 08/08/2014 Active Naproxen 500MG ORAL; Duration: -3 Jose-MJ 08/08/2014 Active Problems Problem Type SNOMED Code ICD Code Onset Dates Problem Status W/U Status Risk Notes Problem Obesity (140084363) Obesity, unspecified (278.00) Active confirmed Major Problem Anxiety state (829838324) Anxiety state, unspecified (300.00) Active confirmed Major Problem Asthma (disorder) (203838433) Asthma, unspecified, unspecified status (493.90) Active confirmed Major Problem Excessive and frequent menstruation (878264636) Excessive or frequent menstruation (626.2) Active confirmed Diag Problem Osteoarthritis (670286579) Osteoarthrosis, unspecified whether generalized or localized, unspecified site (715.90) Active confirmed Major Plan Of Treatment No Information Insurance Providers Payer Name Payer Address Payer Phone Subscriber Number Group Number Insured Name Patient Relationship to Insured Coverage Start Date Coverage End Date [facility] [facility] [address] [address] [place] [address] [id number] L[employer] AC Self - patient is the insured
--- OUTSIDE RECORDS SUMMARY | 2025-07-09 10:08 | XMS_ITS | Patient Health Record ---
Author Organization [facility] Address [address] [place] [address] Care Team Providers Care Refrigeration Engine Operator Name Role Phone Zahra KERR, Lidia Primary Care Provider Max Abarca Jr Unavailable Allergies Allergen (clinical drug ingredient) Drug/Non Drug Allergy documented on EMR Reaction Allergy Type Onset Date Status ampicillin Ampicillin Unknown Drug Allergy Activ e snugggle fabric softner (uncoded) Unknown Allergy Active Reason For Referral No Information Medications Medication SIG (Take, Route, Frequency, Duration) Notes Start Date End Date Status DULoxetine HCl 60 MG 1 capsule Orally On ce a day for 30 day(s) Active Dicyclomine HCl 20 MG 1 tablet Orally 2- 4 times a day 01/05/2020 Active Januvia 100 MG 1 tablet Orally Once a day for 30 day(s) Active Omeprazole 40 MG 1 capsule Orally Onc e a day Active ZyrTEC Allergy 10 MG 1 tablet Orally Onc e a day for 30 day(s) Active Pravastatin Sodium 20 MG 1 tablet Orally Once a day for 30 day(s) Active MiraLax (colon prep) 8.3 ounce ((238) grams mixed with Gatorade or Crystal Light orally begin at 5:00 p.m. the day before the procedure for 1 day 01/05/2020 Active Jardiance 10 MG 1 tablet Orally Once a day for 30 day(s) Active Hair Skin & Nails Advanced - as directed Orally once a day Active Immunizations Vaccine Route Administration Date Status Comme nts Influenza Unknown 08/11/2019 Administered Social History Tobacco Use: Social History Observation Description Date Details (start date - stop date) Former Smoker NA - NA Tobacco Use/Smoking Question Answer Notes Patient is a former smoker How long has it been since you last smoked? 1-5 years Plan Of Treatment Future Test Test Name Order Date UPPER GI ENDOSCOPY 07/05/2015 UPPER GI ENDOSCOPY 01/05/2020 COLONOSCOPY 01/05/2020 Insurance Providers Payer Name Payer Address Payer Phone Subscriber Number Group Number Insured Name Patient Relationship to Insured Coverage Start Date Coverage End Date [facility] [address] [address] [place], [place] [id number] L[employer] AC Self - patient is the insured Medical (General) History Medical History History ICD Code Denies OH,DM,CVA,Lung disease,renal dise ase diabetes mellitus Surgical History Surgery Date(Month/Year) tubal ligation eye surgery
--- OUTSIDE RECORDS SUMMARY | 2025-07-09 10:08 | XMS_ITS | Encounter Summary ---
Author Organization [facility] Address [address] [place] [address] Phone Care Team Providers Care Reading Efficiency Course Director Name Role Phone Rajni Chao MD Unavailable [phone] Oracio Ruiz MD Unavailable [phone] Consuelo Yang MD Unavailable [phone] Gail Fry SHOT PACKER Unavailable [phone] Shanti Rivera SHOT PACKER Unavailable [phone] Lidia Sweeney MD Primary Care Provider Unavailabl e Encounter Details Date Type Department Care Team (Late st Contact Info) Description 12/21/2019 Ancillary Orders Virtual Department [address] [place] [address] Lidia Sweeney MD Abdominal pain, unspecified abdominal location Social History Tobacco Use Types Packs/Day Years Used Date Smoking Tobacco: Never Assessed Comments Unknown Sex and Gender Information Value Date Recorded Sex Assigned at Not on file Legal Sex Female 9:34 PM EDT Gender Identity Not on file Sexual Orientation Not on file documented as of this encounter Plan of Treatment Not on file documented as of this encounter Visit Diagnoses Diagnosis Abdominal pain, unspecified abdominal location documented in this encounter Care Teams Reading Efficiency Course Director Relationship Specialty Start Date End Date Lidia Sweeney MD PCP - General Emergency Medicine 12/21/19 Rajni Chao MD [address] [place] [address] Historical LMR Provider 08/23/17 1 2 Oracio Ruiz MD [address] [place] [address] Historical LMR Provider 08/23/17 Consuelo Yang MD [address] [place] [address] [address] [place] [address] [email or web address] Historical LMR Provider 08/23/17 11/10/21 Gail Fry NP [address] [place] [address] [address] [place] [address] Historical LMR Provider 08/23/17 2 Shanti Rivera NP [address] [place] [address] [address] [place] [address] Historical LMR Provider 08/23/17 11/10/21 documented as of this encounter Additional Source Comments The information contained in this document represents components of the legal health record. It is not the complete legal health record.[facility]
[2025-07-09 11:33] LABS: Hemoglobin A1C 204.3557 umol/L; Total Hemoglobin (HGBA1C) 3418.6391 umol/L
[2025-07-09 12:00] LABS: Alanine Aminotransferase 22 U/L (0-31); Albumin Level 4.7 g/dL (3.5-5.0); Alkaline Phosphatase 79 U/L (39-117); Anion Gap 13 (12-20); Aspartate Amino Transferase 32 U/L (5-31); Blood Urea Nitrogen 10 mg/dL (9-16); Calcium 9.4 mg/dL (8.4-10.2); Carbon Dioxide 27 mmol/L (22-29); Chloride 105 mmol/L (96-108); Cholesterol 203 mg/dL (<200); Estimated Glomerular Filt Rate > 60; HDL Cholesterol 49 mg/dL (>40); Potassium 4.3 mmol/L (3.3-5.1); Sodium 141 mmol/L (135-145); Total Protein 7.7 g/dL (6.5-8.0); Triglycerides 139 mg/dL (<150)
== END 2025-07-09 10:05 | disposition home or self-care (01) ==
LOC: HO.LAB 10:04
PROVIDERS: PCP Family Medicine; Visit Provider Internal Medicine
DX: E11.65 Type 2 diabetes mellitus with hyperglycemia (principal)
CPT/HCPCS: 36415; 80053; 80061; 83036

== ENCOUNTER 2025-07-13 15:51 | Outpatient (AMB) | payer OTHER, SELFPAY ==
[2025-07-13 15:54] VITALS: BP 128/82; PULSE 91; O2SAT 97; BMI 31.4
--- NOTE | 2025-07-13 15:54 | A.OFFVIS_ITS ---
Vital Signs 07/13/25 15:54 Height 5 ft 7 in Weight 200 lb 9.93 oz BMI 31.4 BP 128/82 Blood Pressure Location Rt brachial Position Sitting Pulse 91 Pulse Source Pulse Oximeter Pulse Oximetry (%) 97 Oxygen Delivery Method Room Air Intake Visit Reasons: DM Intake Note: Patient presents today for a follow-up on Type 2 Diabetes Mellitus: Last Diabetic eye exam was on: 06/2025, [facility] Last Podiatry exam was on: Does not see a Farm Rancher Most recent HbA1c: 7.6%, 07/09/2025 Random Glucose- 150 mg/dL, Today Avionics Technician Required: No Accompanied by: Self / Same As Patient Allergies ampicillin (AMPICILLIN) Allergy (Severe, Verified 07/13/25 16:02) RASH HPI Comments Details: The patient is a 55 year old female presenting for diabetes Medical history: Hyperlipidemia Diagnosed with diabetes ~49 y/o Current prescriptions: metformin 1000mg twice daily (usually takes less 2/2 GI side effects), mounjaro 5mg weekly, lantus 10 units. Some nausea with the trulicity. She has tried and been intolerant of jardiance, januvia, and glipizide in the past. A1C 7.6% --8.1 from 7.5%.. A1C Nov 9.4%. Denies hypoglycemia Microvascular/macrovascular: no known complications Denies neuropathy. UTD eye exam On statin Family history of type 2 diabetes on fathers side ROS CONSTITUTIONAL: Denies weight loss, fever and chills. HEENT: Denies changes in vision and hearing. RESPIRATORY: Denies SOB and cough. CV: Denies palpitations and CP GI: Denies abdominal pain, nausea, vomiting and diarrhea. : Denies dysuria and urinary frequency. MSK: Denies new myalgia and joint pain. SKIN: Denies rash and pruritus. NEUROLOGICAL: Denies headache PSYCHIATRIC: Denies recent changes in mood. PHYSICAL EXAM: GENERAL: Alert and oriented x 3. NAD EYES: EOMI. Anicteric. HENT: Moist mucous membranes. No scleral icterus. No cervical lymphadenopathy. LUNGS: Clear to auscultation bilaterally. CARDIOVASCULAR: Regular rate and rhythm. No murmur. No JVD. ABDOMEN: Soft, non-tender +bs EXTREMITIES: No edema. Non-tender. SKIN: No rashes or lesions. Warm. NEUROLOGIC: No focal neurological deficits. CN II-XII grossly intact PSYCHIATRIC: Cooperative. Appropriate mood and affect [facility] Medical History Atypical glandular cells of undetermined significance (HARJIT) on cervical Pap smear Breast mass, right Hot flashes Anxiety Diabetes Depression Surgical History History of tubal ligation Family History Mother Coronary heart disease Father Coronary heart disease Diabetes History of heart attack Other Mental health disorder Social History Housing: House Alcohol intake: current Alcohol intake frequency: a few times a month Alcohol type: hard liquor Patient Tobacco Use Status: Never used Tobacco Cigarettes Per Day: 2 e-Cigarette/Vaping Use: Never Used Second Hand Smoke Exposure: No service: No Current occupational status: employed Current occupation: [employer] Current occupational exposures/hazards: No Gender identity: Female Cognitive needs: No Hearing needs: No Vision needs: Yes (glasses) Female Reproductive History Menstrual Age of Menarche: 13 Physical Exam Vital Signs: Last Vital Signs Pulse 91 07/13/25 15:54 BP 128/82 07/13/25 15:54 Pulse Ox 97 07/13/25 15:54 Oxygen Delivery Method Room Air 07/13/25 15:54 BMI result Body Mass Index 31.4 Results Reviewed Results Reviewed: Laboratory Last Values Glucose (Clinic) 150 mg/dL (60-115) H 07/13/25 16:00 Assessment & Plan Assessment & Plan (1) Uncontrolled diabetes mellitus with hyperglycemia: Code(s): E11.65 - Type 2 diabetes mellitus with hyperglycemia Category: Medical Qualifiers: Diabetes mellitus type: type 2 Qualified Code(s): E11.65 - Type 2 diabetes mellitus with hyperglycemia Plan Type 2 diabetes improving control with mounjaro Increase dose to 7.5mg weekly Continue lantus, metformin Treat hypoglycemia by rules of 15s Return in 3 months or sooner as needed Orders: Referrals Acupuncture Referral M54.30 - Sciatica, unspecified side Medications: New Mounjaro (tirzepatide) 7.5 mg (0.5 mL) subcut QWEEK 6 mL 3RF NS E11.65 - Type 2 diabetes mellitus with hyperglycemia, E11.9 - Type 2 diabetes mellitus without complications Coding Level of Care Code Est Pt Level 4 (99448) Diagnoses Uncontrolled type 2 diabetes mellitus with hyperglycemia E11.65 Diabetes mellitus type: type 2
[2025-07-13 16:04] LABS: Glucose, Whole Blood 150 mg/dL (60-115)
--- OUTSIDE RECORDS SUMMARY | 2025-07-13 18:32 | XMS_ITS | Encounter Summary ---
Author Organization [facility] Address [address] [place] [address] [place] [address] Phone Care Team Providers Care Tubing Machine Tender Name Role Phone Rajni Chao MD Unavailable Oracio Ruiz MD Unavailable Consuelo Yang MD Unavailable Gail Fry HIGHWAY TECHNICIAN Unavailable [phone] TECHNICIAN Unavailable [phone] Lidia Sweeney MD Primary Care Provider Unavailabl e Encounter Details Date Type Department Care Team (Late st Contact Info) Description 12/21/2019 Ancillary Orders Virtual Department 30 [place] [address] Yarelis Sr APRN [address] [place] [address] Social History Tobacco Use Types Packs/Day Years [...] on filedocumented in this encounter Care Teams Tubing Machine Tender Relationship Specialty Start Date End Date Lidia Sweeney MD PCP - General Emergency Medicine 12/21/19 Rajni Chao MD [address] [place] [address] Historical LMR Provider 08/23/17 2 Oracio Ruiz MD 40 [place] [address] Historical LMR Provider 08/23/17 Consuelo Yang MD 22 [facility], [address] [place] [address] [email or web address] Historical LMR Provider 08/23/17 11/10/21 Gail Fry NP [address] [place] [address] [address] [place] [address] Historical LMR Provider 08/23/17 2 Shanti Rivera NP [address] [facility] [address] [place] [address] Historical LMR Provider 08/23/17 11/10/21 documented as of this encounter Additional Source Comments The information contained in this document represents components of the legal health record. It is not the complete legal health record.[facility]
--- OUTSIDE RECORDS SUMMARY | 2025-07-13 18:32 | XMS_ITS | Encounter Summary ---
Author Organization [facility] Address [address] [place] [address] Phone Care Team Providers Care Jewel Stripper Name Role Phone Rajni Chao MD Unavailable [phone] Oracio Ruiz MD Unavailable Consuelo Yang MD Unavailable [phone] Gail Fry LOGISTIC SPECIALIST Unavailable Shanti Rivera LOGISTIC SPECIALIST Unavailable [phone] Lidia Sweeney MD Primary Care Provider Unavailabl e Encounter Details Date Type Department Care Team (Late st Contact Info) Description 12/21/2019 Ancillary Orders Virtual Department 30 [place] [address] Lidia Sweeney MD Abdominal pain, unspecified abdominal [...] location documented in this encounter Care Teams Jewel Stripper Relationship Specialty Start Date End Date Lidia Sweeney MD PCP - General Emergency Medicine 12/21/19 Rajni Chao MD 84 [place] [address] Historical LMR Provider 08/23/17 1 2 Oracio Ruiz MD 40 [place] [address] Historical LMR Provider 08/23/17 Consuelo Yang MD [address] [place] [address] [address] [place] [address] [email or web address] Historical LMR Provider 08/23/17 11/10/21 Gail Fry NP [address] [place] [address] [address] [place] [address] Historical LMR Provider 08/23/17 2 Shanti Rivera NP [address] [place] [address] 6 [place] [address] Historical LMR Provider 08/23/17 11/10/21 documented as of this encounter Additional Source Comments The information contained in this document represents components of the legal health record. It is not the complete legal health record.[facility]
--- OUTSIDE RECORDS SUMMARY | 2025-07-13 18:32 | XMS_ITS | Clinical Summary ---
Author Organization [facility] Address [address] [address] Phone Care Team Providers Care Pit Laborer Name Role Phone Oracio Ruiz MD Unavailable Lidia Sweeney MD Primary Care Provider Unavailabl [...] - External 161 50 - 250 mg/ml [facility] Provider LAB BLOOD ORDERABLES Karen l Result from Last 3 Months or Most Recently Relevant to Health Maintenance [place] [address] NON NSPG PCP [place] [place] [place] [address] NON NSPG PCP [place] [employer] NON NSPG PCP [employer] [address] [place], [place] [address]ENSE NON NSPG PCP [employer] [address] [place], [place] [address] NON NSPG PCP S[employer] NON NSPG PCP [employer] [address] [place], [place] [address] NON NSPG PCP [employer] [address] [place] [address] NON NSPG PCP S[employer] [facility] NON NSPG PCP [facility] Care Teams Pit Laborer Relationship Specialty Start Date End Date Lidia Sweeney MD PCP - General Emergency Medicine 12/21/19 Oracio Ruiz MD [address] [place] [address] [email or web address] Historical LMR Provider 08/23/17 Additional Source Comments The information contained in this document represents components of the legal health record. It is not the complete legal health record.[facility]
--- OUTSIDE RECORDS SUMMARY | 2025-07-13 18:32 | XMS_ITS | Patient Health Record ---
Author Organization [employer] [facility] Address [address] [facility] [address] [place] [address] Care Team Providers Care Licensed Embalmer Name Role Phone Meli Camejo Unavailable [phone] Reason For Referral No Information Medications Medication SIG (Take, Route, Fr equency, Duration) Notes Start Date End Date Status Ativan 0.5MG ORAL; Duration: -3 Jose-MJ 08/08/2014 Active Naproxen 500MG ORAL; Duration: -3 Jose-MJ 08/08/2014 Active Problems Problem Type SNOMED Code ICD Code Onset Dates Problem Status W/U Status Risk Notes Problem Obesity (213848202) Obesity, unspecified (278.00) Active confirmed Major Problem Anxiety state (425798523) Anxiety state, unspecified (300.00) Active confirmed Major Problem Asthma (disorder) (299065689) Asthma, unspecified, unspecified status (493.90) Active confirmed Major Problem Excessive and frequent menstruation (999011950) Excessive or frequent menstruation (626.2) Active confirmed Diag Problem Osteoarthritis (120491503) Osteoarthrosis, unspecified whether generalized or localized, unspecified site (715.90) Active confirmed Major Plan Of Treatment No Information Insurance Providers Payer Name Payer Address Payer Phone Subscriber Number Group Number Insured Name Patient Relationship to Insured Coverage Start Date Coverage End Date [facility] [employer] [facility] [address] [address] [place] [address] [id number] LAVERNE AC Self - patient is the insured
--- OUTSIDE RECORDS SUMMARY | 2025-07-13 18:32 | XMS_ITS | Patient Health Record ---
Author Organization [facility] Address [address] [place] [address] Care Team Providers Care Behavior Analyst Name Role Phone Zahra KERR, Lidia Primary [...] Insured Coverage Start Date Coverage End Date [facility] [address] [address] [place], [place] [id number] LAVERNE AC Self - patient is the insured Medical (General) History Medical History History ICD Code Denies NM,DM,CVA,Lung disease,renal dise ase diabetes mellitus Surgical History Surgery Date(Month/Year) tubal ligation eye surgery
== END 2025-07-13 16:16 | disposition home or self-care (01) ==
LOC: HO.ENCR 15:52
PROVIDERS: PCP Family Medicine; Visit Provider Internal Medicine
DX: E11.65 Type 2 diabetes mellitus with hyperglycemia (principal)

== ENCOUNTER → 2025-07-13 15:51 | Outpatient (BNVA) | payer OTHER, SELFPAY | PROVIDERS: PCP Family Medicine; Visit Provider Internal Medicine | DX: E11.65 Type 2 diabetes mellitus with hyperglycemia (principal); Z79.4 Long term (current) use of insulin; Z79.84 Long term (current) use of oral hypoglycemic drugs | CPT/HCPCS: 82947 ==

== ENCOUNTER 2025-10-12 15:50 | Outpatient (AMB) | payer OTHER, SELFPAY ==
[2025-10-12 15:54] VITALS: BP 108/68; PULSE 78; O2SAT 98
--- NOTE | 2025-10-12 15:54 | A.OFFVIS_ITS ---
Vital Signs 10/12/25 15:54 Height 5 ft 7 in Weight 191 lb 12.835 oz BMI 30.0 BP 108/68 Blood Pressure Location Rt brachial Position Sitting Pulse 78 Pulse Source Pulse Oximeter Pulse Oximetry (%) 98 Intake Visit Reasons: DM Intake Note: Patient presents today for a follow-up on Type 2 Diabetes Mellitus: Last Diabetic eye exam was on: 07/15/2025, [facility] Last Podiatry exam was on: Does not see a Tobacco Sweeper Most recent HbA1c: 6.6%, 10/12/2025 Random Glucose- 130 mg/dL, Today Street Worker Required: No Accompanied by: Self / Same As Patient Allergies ampicillin (AMPICILLIN) Allergy (Severe, Verified 10/12/25 16:13) RASH HPI Comments Details: The patient is a 55 year old female presenting for diabetes Medical history: Hyperlipidemia Diagnosed with diabetes ~49 y/o Current prescriptions: metformin 1000mg twice daily mounjaro 7.5mg weekly lantus 10 units. Some nausea with the trulicity. She has tried and been intolerant of jardiance, januvia, and glipizide in the past. A1C 6.6% from 7.6% --8.1 from 7.5%.. A1C Nov 9.4%. Denies hypoglycemia Microvascular/macrovascular: no known complications Denies neuropathy. UTD eye exam On statin Family history of type 2 diabetes on fathers side ROS CONSTITUTIONAL: Denies weight loss, fever and chills. HEENT: Denies changes in vision and hearing. RESPIRATORY: Denies SOB and cough. CV: Denies palpitations and CP GI: Denies abdominal pain, nausea, vomiting and diarrhea. : Denies dysuria and urinary frequency. MSK: Denies new myalgia and joint pain. SKIN: Denies rash and pruritus. NEUROLOGICAL: Denies headache PSYCHIATRIC: Denies recent changes in mood. PHYSICAL EXAM: GENERAL: Alert and oriented x 3. NAD EYES: EOMI. Anicteric. HENT: Moist mucous membranes. No scleral icterus. No cervical lymphadenopathy. LUNGS: Clear to auscultation bilaterally. CARDIOVASCULAR: Regular rate and rhythm. No murmur. No JVD. ABDOMEN: Soft, non-tender +bs EXTREMITIES: No edema. Non-tender. SKIN: No rashes or lesions. Warm. NEUROLOGIC: No focal neurological deficits. CN II-XII grossly intact PSYCHIATRIC: Cooperative. Appropriate mood and affect [facility] Medical History Atypical glandular cells of undetermined significance (HARJIT) on cervical Pap smear Breast mass, right Hot flashes Anxiety Diabetes Depression Surgical History History of tubal ligation Family History Mother Coronary heart disease Father Coronary heart disease Diabetes History of heart attack Other Mental health disorder Social History Housing: House Alcohol intake: current Alcohol intake frequency: a few times a month Alcohol type: hard liquor Patient Tobacco Use Status: Never used Tobacco Cigarettes Per Day: 2 e-Cigarette/Vaping Use: Never Used Second Hand Smoke Exposure: No service: No Current occupational status: employed Current occupation: [employer] Current occupational exposures/hazards: No Gender identity: Female Cognitive needs: No Hearing needs: No Vision needs: Yes (glasses) Female Reproductive History Menstrual Age of Menarche: 13 Physical Exam Vital Signs: Last Vital Signs Pulse 78 10/12/25 15:54 BP 108/68 10/12/25 15:54 Pulse Ox 98 10/12/25 15:54 BMI result Body Mass Index 30.0 Results AMB Hemoglobin A1c AMB Hemoglobin A1c 6.6 % Last Edit by MERRY Brandt on 10/12/25 16:15 Results Reviewed Results Reviewed: Laboratory Last Values Glucose (Clinic) 130 mg/dL (60-115) H 10/12/25 15:58 Hgb A1c (Clinic) 6.6 % (4.0-6.0) H 10/12/25 16:13 Assessment & Plan Assessment & Plan (1) Diabetes: Code(s): E11.9 - Type 2 diabetes mellitus without complications Category: Medical Qualifiers: Diabetes mellitus type: type 2 Diabetes mellitus intermediate manager insulin use: with intermediate manager use Diabetes mellitus complication status: without complication Qualified Code(s): E11.9 - Type 2 diabetes mellitus without complications; Z79.4 - intermediate frame tender (current) use of insulin (2) Insulin use (long-term) in type 2 diabetes: Code(s): E11.9 - Type 2 diabetes mellitus without complications; Z79.4 - group home (current) use of insulin Category: Medical Qualifiers: Diabetes mellitus complication status: with hyperglycemia Qualified Code(s): E11.65 - Type 2 diabetes mellitus with hyperglycemia; Z79.4 - intermediate frame tender (current) use of insulin Plan 55 y/o for diabetic follow up Congratulated on interval control of A1C. Patient doing really well on GLP1 agonist which will be continued Eye exam up to date Treat hypoglycemia by rules of 15s Return in 3 months or sooner as needed Orders: Orders AMB Hemoglobin A1c 10/12/25 E11.65 - Type 2 diabetes mellitus with hyp erglycemia, Z79.4 - group home (current) use of insulin Medications: Discontinued Mounjaro (tirzepatide) Discontinued Reason: Doctor's Order 5 mg (0.5 mL) subcut QWEEK 6 mL 3RF NS E11.65 - Type 2 diabetes mellitus with hyperglycemia, E11.9 - Type 2 diabetes mellitus without complications Coding Level of Care Code Est Pt Level 3 (27215) Diagnoses Type 2 diabetes mellitus without complication, with long-term current use of insulin E11.9; Z79.4 Diabetes mellitus type: type 2 Diabetes mellitus jail insulin use: with intermediate manager use Diabetes mellitus complication status: without complication Type 2 diabetes mellitus with hyperglycemia, with long-term current use of insulin E11.65; Z79.4 Diabetes mellitus complication status: with hyperglycemia
[2025-10-12 16:03] LABS: Glucose, Whole Blood 130 mg/dL (60-115)
--- OUTSIDE RECORDS SUMMARY | 2025-10-13 00:35 | XMS_ITS | Patient Health Record ---
Author Organization [facility] Address [address] [place] [address] Care Team Providers Care In File Operator Name Role Phone Zahra KERR, Lidia Primary Care Provider Max Abarca Jr Unavailable Allergies Allergen (clinical drug ingredient) Drug/Non Drug Allergy documented on EMR Reaction Allergy Type Onset Date Status snugggle fabric softner (uncoded) Unknown Allergy Active ampicillin Ampicillin Unknown Drug Allergy Activ e Reason For Referral No Information Medications Medication SIG (Take, Route, Frequency, Duration) Notes Start Date End Date Status DULoxetine HCl 60 MG Capsule Delayed Release Particles 1 capsule Orally Once a day; Duration: 30 day(s) Active Dicyclomine HCl 20 MG Tablet 1 tablet Orally 2-4 times a day 01/05/2020 Active Januvia 100 MG Tablet 1 tablet Orally On ce a day; Duration: 30 day(s) Active Omeprazole 40 MG Capsule Delayed Release 1 capsule Orally Once a day Active ZyrTEC Allergy 10 MG Tablet 1 tablet Ora lly Once a day; Duration: 30 day(s) Active Pravastatin Sodium 20 MG Tablet 1 tablet Orally Once a day; Duration: 30 day(s) Active MiraLax (colon prep) 8.3 ounce ((238) grams mixed with Gatorade or Crystal Light orally begin at 5:00 p.m. the day before the procedure; Duration: 1 day 01/05/2020 Active Jardiance 10 MG Tablet 1 tablet Orally O nce a day; Duration: 30 day(s) Active Hair Skin & Nails Advanced - Tablet as directed Orally once a day Active Immunizations Vaccine Route Administration Date Status Comme nts Influenza Unknown 08/11/2019 Administered Social History Tobacco Use: Social History Observation Description Date Details (start date - stop date) Former Smoker NA - NA Social History Tobacco Use: Social Info Question Answer Notes Tobacco Use/Smoking Patient is a former smoker How long has it been since you last smoked? 1-5 years Additional Details Category Social Info Options Details Miscellaneous: Marital status: Occupation: carpenter labor supervisor at [employer] Plan Of Treatment Future Test Test Name Order Date UPPER GI ENDOSCOPY 07/05/2015 UPPER GI ENDOSCOPY 01/05/2020 COLONOSCOPY 01/05/2020 Insurance Providers Payer Name Payer Address Payer Phone Subscriber Number Group Number Insured Name Patient Relationship to Insured Coverage Start Date Coverage End Date [facility] [address] [address] [place], [place] [id number] LAVERNE AC Self - patient is the insured Medical (General) History Medical History History ICD Code Denies CT,DM,CVA,Lung disease,renal dise ase diabetes mellitus Surgical History Surgery Date(Month/Year) tubal ligation eye surgery
--- OUTSIDE RECORDS SUMMARY | 2025-10-13 00:35 | XMS_ITS | Encounter Summary ---
Author Organization [facility] Address [address] [place] [address] Phone Care Team Providers Care Band Straightener Name Role Phone Rajni Chao MD Unavailable [phone] Oracio Ruiz MD Unavailable Consuelo Yang MD Unavailable [phone] Gail Fry COSMETIC MANAGER Unavailable Shanti Rivera COSMETIC MANAGER Unavailable [phone] Lidia Sweeney MD Primary Care Provider Unavailabl e Encounter Details Date Type Department Care Team (Late st Contact Info) Description 12/21/2019 Ancillary Orders Virtual Department 30 [place] [address] Lidia Sweeney MD Abdominal pain, unspecified abdominal [...] location documented in this encounter Care Teams Band Straightener Relationship Specialty Start Date End Date Lidia Sweeney MD PCP - General Emergency Medicine 12/21/19 Rajni Chao MD [address] [place] [address] Historical LMR Provider 08/23/17 1 2 Oracio Ruiz MD 40 [place] [address] Historical LMR Provider 08/23/17 Consuelo Yang MD [address] [place] [address] [address] [place] [address] Historical LMR Provider 08/23/17 11/10/21 Gail Fry NP [address] [place] [address] [address] [place] [address] Historical LMR Provider 08/23/17 2 Shanti Rivera NP [address] [place] [address] 6 [place] [address] Historical LMR Provider 08/23/17 11/10/21 documented as of this encounter Additional Source Comments The information contained in this document represents components of the legal health record. It is not the complete legal health record.[facility]
--- OUTSIDE RECORDS SUMMARY | 2025-10-13 00:35 | XMS_ITS | Clinical Summary ---
Author Organization [facility] Address [address] [address] Phone Care Team Providers Care Corncob Pipes Assembler Name Role Phone Oracio Ruiz MD Unavailable [phone] Lidia Sweeney MD Primary Care Provider Unavailabl [...] - 2024-2 6 season) 2025 12/09/2020, 11/18/2020 RSV VACCINE (1 - 1-dose 75+ series) 2046 HEPATITIS A VACCINES Aged Out No long [...] - External 161 50 - 250 mg/ml [facility] Provider LAB BLOOD ORDERABLES Karen l Result from Last 3 Months or Most Recently Relevant to Health Maintenance Insurance [facility] NON NSPG PCP [place] [employer] NON NSPG PCP S[employer] NON NSPG PCP [employer] Member Subscriber Plan / Payer (Ef fective 2019-Present) Name:Jackie Vazquez Relation to Subscriber:Self Name:Jackie Vazquez Payer ID:[id number] Type:O Address: [address] [employer] NON NSPG PCP [employer] Member Subscriber Plan / Payer (Ef fective 2019-Present) Name:Jackie Vazquez Relation to Subscriber:Self Name:Jackie Vazquez Payer ID:[id number] Type:O Address: [address] [place], [place] [address] NON NSPG PCP [employer] [place] [place] [address] NON NSPG PCP [employer] Member Subscriber Plan / Payer (Ef fective 2019-Present) Name:Jackie Vazquez Relation to Subscriber:Self Name:Jackie Vazquez Payer ID:[id number] Type:[employer] Address: [address] [place], [place] [address] NON NSPG PCP [employer] Member Subscriber Plan / Payer (Ef fective 2019-Present) Name:Jackie Vazquez Relation to Subscriber:Self Name:Jackie Vazquez Payer ID:[id number] Type:HMO Address: [address] [facility] NON NSPG PCP [facility] Care Teams Corncob Pipes Assembler Relationship Specialty Start Date End Date Lidia Sweeney MD PCP - General Emergency Medicine 12/21/19 Oracio Ruiz MD [address] [place] [address] [email or web address] Historical LMR Provider 08/23/17 Additional Source Comments The information contained in this document represents components of the legal health record. It is not the complete legal health record.[facility]
--- OUTSIDE RECORDS SUMMARY | 2025-10-13 00:35 | XMS_ITS | Encounter Summary ---
Author Organization [facility] Address [address] [place] [address] [place] [address] Phone Care Team Providers Care Independent Contractor Name Role Phone Rajni Chao MD Unavailable [phone] Oracio Ruiz MD Unavailable Consuelo Yang MD Unavailable Gail Fry LEAD FIRE PROTECTION ENGINEER Unavailable [phone] Shanti Rivera LEAD FIRE PROTECTION ENGINEER Unavailable [phone] Lidia Sweeney MD Primary Care Provider Unavailabl e Encounter Details Date Type Department Care Team (Late st Contact Info) Description 12/21/2019 Ancillary Orders Virtual Department 30 [place] [address] Yarelis Sr APRN [address] [place] [address] Social History Tobacco Use Types Packs/Day Years [...] on filedocumented in this encounter Care Teams Independent Contractor Relationship Specialty Start Date End Date Lidia Sweeney MD PCP - General Emergency Medicine 12/21/19 Rajni Chao MD [address] [place] [address] Historical LMR Provider 08/23/17 2 Oracio Ruiz MD 40 [place] [address] Historical LMR Provider 08/23/17 Consuelo Yang MD [address] [facility], [address] [place] [address] Historical LMR Provider 08/23/17 11/10/21 Gail Fry NP [address] [place] [address] [address] [place] [address] Historical LMR Provider 08/23/17 2 Shanti Rivera NP [address] [facility] [address] [place] [address] Historical LMR Provider 08/23/17 11/10/21 documented as of this encounter Additional Source Comments The information contained in this document represents components of the legal health record. It is not the complete legal health record.[facility]
--- OUTSIDE RECORDS SUMMARY | 2025-10-13 00:35 | XMS_ITS | Patient Health Record ---
Author Organization [employer] [facility] Address [address] [facility] [address] [place] [address] Care Team Providers Care Transition Manager Name Role Phone Meli Camejo Unavailable [phone] Reason For Referral No Information Medications Medication SIG (Take, Route, Fr equency, Duration) Notes Start Date End Date Status Ativan 0.5MG ORAL; Duration: -3 Jose-MJ 08/08/2014 Active Naproxen 500MG ORAL; Duration: -3 Jose-MJ 08/08/2014 Active Problems Problem Type SNOMED Code ICD Code Onset Dates Problem Status W/U Status Risk Notes Problem Obesity (890417539) Obesity, unspecified (278.00) Active confirmed Major Problem Anxiety state (177730556) Anxiety state, unspecified (300.00) Active confirmed Major Problem Asthma (disorder) (930997848) Asthma, unspecified, unspecified status (493.90) Active confirmed Major Problem Excessive and frequent menstruation (263588657) Excessive or frequent menstruation (626.2) Active confirmed Diag Problem Osteoarthritis (455847081) Osteoarthrosis, unspecified whether generalized or localized, unspecified site (715.90) Active confirmed Major Plan Of Treatment No Information Insurance Providers Payer Name Payer Address Payer Phone Subscriber Number Group Number Insured Name Patient Relationship to Insured Coverage Start Date Coverage End Date [facility] [employer] [facility] [address] [address] [place] [address] [id number] LAVERNE AC Self - patient is the insured
== END 2025-10-12 16:17 | disposition home or self-care (01) ==
LOC: HO.ENCR 15:51
PROVIDERS: PCP Family Medicine; Visit Provider Internal Medicine
DX: E11.9 Type 2 diabetes mellitus without complications (principal); Z79.4 Long term (current) use of insulin; E11.65 Type 2 diabetes mellitus with hyperglycemia

== ENCOUNTER → 2025-10-12 15:50 | Outpatient (BNVA) | payer OTHER, SELFPAY | PROVIDERS: PCP Family Medicine; Visit Provider Internal Medicine | DX: E11.65 Type 2 diabetes mellitus with hyperglycemia (principal); Z79.4 Long term (current) use of insulin | CPT/HCPCS: 82947; 83036 ==